=== PATIENT | male | born 1930 | race Hispanic/Latino ===

== ENCOUNTER 2017-10-19 17:20 | Inpatient (IN) | payer MEDICAID ==
[~2017-10-19] VITALS: Ht 167.6 cm; Wt 81.6 kg
[~2017-10-19 17:20] MED LIST: ASPIR 8181 MG ORAL; COLACE50 MG ORAL; CRANBERRY PO; FLOMAX0.4 MG ORAL; GABAPENTIN100 MG ORAL; LISINOPRIL2.5 MG ORAL; MILK OF MA2400 MG/10 ORAL; NIASPAN ER750 MG ORAL; NORVASC10 MG ORAL; TYLENOL650 MG/20. ORAL; ULTRAM50 MG ORAL; VITAMIN B650 M1 PO
[2017-10-19] MEDS ORDERED: AZO CRANBERRY1 EACH PO (17:31)
[2017-10-19] MEDS ORDERED: AVODART0.5 MG ORAL (17:31)
[2017-10-19] MEDS ORDERED: NEURONTIN100 MG ORAL (17:32)
[2017-10-19] MEDS ORDERED: LOPID600 MG ORAL (17:32)
--- NOTE | 2017-10-19 17:44 | Emergency Room Report ---
History of Present Illness General Chief Complaint: Altered Mental Status Source: Patient, EMS Present Illness HPI Patient presents with altered mental status. Paramedics found him hypotensive. He states he has pain all over his body. Accu-Chek was in the 100s. He complains about dysuria. Paramedics gave the patient a fluid bolus of 250 and his blood pressure came up to 91. He had improvement in mentation with this. Patient denies nausea vomiting diarrhea constipation. He also denies cough, chest pain, rashes, depression, headache. H/O BPH and urinary retention in past. Allergies: Coded Allergies: No Known Allergies (Unverified , 07/01/13) Patient History Past Medical History: see triage record Social History: Denies: smoking, alcohol use, drug use Social History Narrative Mckayla Hunter Reviewed Nursing Documentation: PMH: Agreed; PSxH: Agreed Nursing Documentation-PMH Past Medical History: No History, Except For Hx Cardiac Problems: Yes - Hyperlipidemia Hx Hypertension: Yes - PVD Hx Cancer: No Hx Gastrointestinal Problems: Yes - GERD History Of Psychiatric Problem: Yes - major depression Hx Neurological Problems: Yes - Sciatica Hx Dementia: Yes - per family Physical Exam Vital Signs Date Time Temp Pulse Resp B/P (MAP) Pulse Ox O2 Delivery O2 Flow Rate FiO2 10/19/17 17:24 98.2 94 16 91/52 94 Room Air 98.2 Sp02 EP Interpretation: reviewed, normal General Appearance: no apparent distress, thin, Chronically Ill Head: normocephalic, atraumatic Eyes: bilateral eye normal inspection ENT: moist mucus membranes Neck: supple Respiratory: chest non-tender, lungs clear, normal breath sounds Cardiovascular #1: regular rate, rhythm Cardiovascular #2: 2+ radial (R) Gastrointestinal: normal inspection, normal bowel sounds, non tender, no mass, non-distended, scaphoid Genitourinary: penis normal - uncirc, other - Diaper Musculoskeletal: back normal, normal range of motion, no calf tenderness Neurologic: alert, sensory intact, motor weakness - all 4, oriented - 2 Psychiatric: mood/affect normal Skin: normal inspection, warm/dry Procedures Additional Procedure Procedure Narrative #14 Coudet cath placed by ERMD. Medical Decision Making Diagnostic Impression: Primary Impression: Sepsis Qualified Codes: A41.9 - Sepsis, unspecified organism Additional Impression: UTI (lower urinary tract infection) ER Course Patient presents with altered mentation and hypotension. Differential includes acute myocardial infarction, sepsis, UTI, dehydration amongst others. Evaluation will be with a sepsis workup, EKG and chest x-ray also. The patient will receive IV hydration and most likely will need IV antibiotics. EKG with some normal sinus rhythm with nonspecific ST-T wave changes with ST inversions laterally rate of 73. Elevated WBC. CREDIT RISK REVIEW OFFICER normal. Elevated BNP. CXR no infiltrate, but atelectasis L base. Antibiotics started. Aguilera placed - no urine output initially. UA with pyuria. Sepsis re-evaluation: more alert, no hypotension, good capillary fill. Admit med Dr. Colon. Laboratory Tests Test 10/19/17 18:00 10/19/17 20:20 White Blood Count 33.6 K/UL (4.8-10.8) *H Red Blood Count 4.11 M/UL (4.70-6.10) L Hemoglobin 13.5 G/DL (14.2-18.0) L Hematocrit 38.9 % (42.0-52.0) L Mean Corpuscular Volume 95 FL (80-99) Mean Corpuscular Hemoglobin 32.9 PG (27.0-31.0) H Mean Corpuscular Hemoglobin Concent 34.8 G/DL (32.0-36.0) Red Cell Distribution Width 12.0 % (11.6-14.8) Platelet Count 280 K/UL (150-450) Mean Platelet Volume 6.3 FL (6.5-10.1) L Neutrophils (%) (Auto) % (45.0-75.0) Lymphocytes (%) (Auto) % (20.0-45.0) Monocytes (%) (Auto) % (1.0-10.0) Eosinophils (%) (Auto) % (0.0-3.0) Basophils (%) (Auto) % (0.0-2.0) Differential Total Cells Counted 100 Neutrophils % (Manual) 95 % (45-75) H Lymphocytes % (Manual) 3 % (20-45) L Monocytes % (Manual) 2 % (1-10) Eosinophils % (Manual) 0 % (0-3) Basophils % (Manual) 0 % (0-2) Band Neutrophils 0 % (0-8) Platelet Estimate Adequate Platelet Morphology Normal Red Blood Cell Morphology Normal Prothrombin Time 11.7 SEC (9.30-11.50) H Prothrombin Time INR 1.1 (0.9-1.1) PTT 30 SEC (23-33) Sodium Level 139 MMOL/L (136-145) Potassium Level 4.4 MMOL/L (3.5-5.1) Chloride Level 103 MMOL/L (98-107) Carbon Dioxide Level 22 MMOL/L (21-32) Anion Gap 14 mmol/L (5-15) Blood Urea Nitrogen 40 mg/dL (7-18) H Creatinine 2.3 MG/DL (0.55-1.30) H Estimate Glomerular Filtration Rate mL/min (>60) Glucose Level 131 MG/DL (74-106) H Lactic Acid Level 1.80 mmol/L (0.4-2.0) Calcium Level 9.3 MG/DL (8.5-10.1) Total Bilirubin 0.7 MG/DL (0.2-1.0) Aspartate Amino Transferase (AST) 19 U/L (15-37) Alanine Aminotransferase (ALT) 16 U/L (12-78) Alkaline Phosphatase 68 U/L (46-116) Total Creatine Kinase 177 U/L (26-308) Troponin I 0.032 ng/mL (0.000-0.056) Pro-B-Type Natriuretic Peptide 3038 pg/mL (0-125) H Total Protein 8.5 G/DL (6.4-8.2) H Albumin 3.7 G/DL (3.4-5.0) Globulin 4.8 g/dL Albumin/Globulin Ratio 0.8 (1.0-2.7) L Urine Color Pale yellow Urine Appearance Cloudy Urine pH 8 (4.5-8.0) Urine Specific [place] 1.010 (1.005-1.035) Urine Protein 3+ (NEGATIVE) H Urine Glucose (UA) Negative (NEGATIVE) Urine Ketones Negative (NEGATIVE) Urine Blood 5+ (NEGATIVE) H Urine Nitrite Negative (NEGATIVE) Urine Bilirubin Negative (NEGATIVE) Urine Urobilinogen Normal MG/DL (0.0-1.0) Urine Leukocyte Esterase 3+ (NEGATIVE) H Urine RBC 15-20 /HPF (0 - 0) H Urine WBC 60-80 /HPF (0 - 0) H Urine Squamous Epithelial Cells Occasional /LPF Urine Bacteria Many /HPF (NONE) H EKG Diagnostic Results Rate: normal Rhythm: NSR ST Segments: no acute changes Rhythm Strip Diag. Results EP Interpretation: yes Rhythm: NSR, no PVC's, no ectopy Chest X-Ray Diagnostic Results Chest X-Ray Diagnostic Results : Chest X-Ray Ordered: Yes # of Views/Limited/Complete: 1 View Indication: Other EP Interpretation: Yes Interpretation: no consolidation, no effusion, no pneumothorax Impression: No acute disease Electronically Signed by: Electronically signed by Tyler Sanderson MD Last Vital Signs Date Time Temp Pulse Resp B/P (MAP) Pulse Ox O2 Delivery O2 Flow Rate FiO2 10/19/17 20:51 97.0 70 20 109/52 100 Room Air 97.0 Status: improved Disposition: ADMITTED INPATIENT Condition: Serious Tyler Sanderson M.D. Oct 19, 2017 17:44
[2017-10-19 18:00] VITALS: BP 98/46
[2017-10-19 18:26] LABS: INR 1.1 (0.9-1.1)
[2017-10-19 18:34] LABS: ANION GAP 14 mmol/L (5-15); BLOOD UREA NITROGEN 40 mg/dL (7-18); CALCIUM 9.3 MG/DL (8.5-10.1); CARBON DIOXIDE 22 MMOL/L (21-32); CHLORIDE 103 MMOL/L (98-107); CREATININE 2.3 MG/DL (0.55-1.30); POTASSIUM 4.4 MMOL/L (3.5-5.1); SODIUM 139 MMOL/L (136-145)
[2017-10-19 18:36] LABS: HEMATOCRIT 38.9 % (42.0-52.0); HEMOGLOBIN 13.5 G/DL (14.2-18.0); MEAN CORPUSCULAR VOLUME 95 FL (80-99); PLATELET COUNT 280 K/UL (150-450); RED BLOOD COUNT 4.11 M/UL (4.70-6.10)
--- NOTE | 2017-10-19 18:43 | Diagnostic Imaging Report ---
EXAM: XR Chest, 1 View CLINICAL HISTORY: ALOC TECHNIQUE: Frontal view of the chest. COMPARISON: Chest x-ray 07/01/13. FINDINGS: Lungs: No consolidation. Mild nodularity in the lung apices as before. Pleural space: Unremarkable. No pneumothorax. Heart: Mild cardiomegaly. Mediastinum: Unremarkable. Bones/joints: No acute fracture. IMPRESSION: No confluent consolidation.
[2017-10-19 18:45] LABS: ALANINE AMINOTRANSFERASE 16 U/L (12-78); ALBUMIN 3.7 G/DL (3.4-5.0); ALBUMIN/GLOBULIN RATIO 0.8 (1.0-2.7); ALKALINE PHOSPHATASE 68 U/L (46-116); ASPARTATE AMINO TRANSFERASE 19 U/L (15-37); BILIRUBIN,TOTAL 0.7 MG/DL (0.2-1.0); CREATINE KINASE 177 U/L (26-308); WHITE BLOOD COUNT 33.6 K/UL (4.8-10.8)
[2017-10-19] MEDS ORDERED: Cefepime HCl 1 GM in D5W 55 ML IVPB ONE (19:00)
[2017-10-19] MEDS ORDERED: Vancomycin 1 GM in D5W 275 ML IVPB ONE (19:00)
[2017-10-19] MEDS ORDERED: Lidocaine HCl 2% Jelly 5ml Tube TOPIC ONE ×2 (19:30→19:50)
[2017-10-19 20:02] VITALS: BP 89/51
[2017-10-19 20:35] LABS: APPEARANCE,URINE CLOUDY; BILIRUBIN, URINE NEGATIVE (NEGATIVE); COLOR,URINE PALE YELLOW; GLUCOSE, URINE (UA) NEGATIVE (NEGATIVE); KETONES,URINE NEGATIVE (NEGATIVE); LEUKOCYTE ESTERASE ,URINE 3+ (NEGATIVE); NITRITE,URINE NEGATIVE (NEGATIVE); PH,URINE 8 (4.5-8.0); PROTEIN,URINE 3+ (NEGATIVE); UROBILINOGEN,URINE NORMAL MG/DL (0.0-1.0)
[2017-10-19 20:51] VITALS: BP 109/52
[2017-10-19 21:24] VITALS: BP 124/75
[2017-10-20] VITALS: BP 112/63
--- NOTE | 2017-10-20 02:30 | History and Physical Report ---
DATE OF ADMISSION: 10/19/2017 REASON FOR ADMISSION: This is the first admission to [facility] of this 87-year-old patient because of hypotension and sepsis. HISTORY OF PRESENT ILLNESS: The patient is a resident of an extended care facility where he has been in stable condition over the last several years. He is known to have several chronic medical syndrome that we described in the following paragraph, but he has been stable on his current medication. Several days prior to the present admission, he developed dysuria and frequency. During his examination on the day of admission, he developed anorexia, hypotension, tachycardia, and lethargy. He was then transferred to [facility] ER where he was found to have blood pressure of 91/50 with a heart rate of 94 and WBC of 24,000. He received IV fluid, broad-spectrum antibiotics and was admitted. PAST MEDICAL HISTORY: He denied any surgical antecedent. Medically, he is known to have high blood pressure for the last 3 years, diabetes mellitus type 2 for the last 3 years for which he is on diet only. He has hyperlipidemia for 5 years and benign prostatic hypertrophy for the last . ALLERGIES: No known drug allergies. MEDICATIONS: The patient is on lisinopril 20 mg daily. He is on Avodart 0.5 mg daily, tamsulosin 0.4 mg daily, and he has as needed medication for pain. FAMILY HISTORY: Noncontributory. SOCIAL HISTORY: He is single. He was born in [place]. He lived in [place] for many years. 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 HABITS: The patient denies any smoking, drinking, or use of illicit drugs. REVIEW OF SYSTEMS: CARDIOVASCULAR: The patient denied any chest pain, shortness of breath, palpitations, or dizziness. PULMONARY: The patient denied any cough, wheezing, or expectoration. GASTROINTESTINAL: His appetite is moderate. His weight is stable. He has no dysphagia or dyspepsia. No bowel movement disorder. GENITOURINARY: Prior to the last few days, the patient denied any dysuria, frequency, or incontinence. Nocturia is 0 to 1. JOINTS: The patient denies any pain, swelling, stiffness, cold extremities, photosensitivity, dry eyes, or alopecia. CENTRAL NERVOUS SYSTEM: Sleep is of good quality. No numbness, tingling, seizure disorder, and has no headache. PHYSICAL EXAMINATION: VITAL SIGNS: Blood pressure is 109/52, his pulse is 70, respirations were 20, and temperature was 97 degrees. HEENT: Eyes were normal. Pupils are equal, round, equal, and reactive to light. Sclerae was white. Conjunctiva was pink. Extraocular movements were normal. Temporal arteries were palpable bilaterally. There was no bilateral temporal wasting. Visual jacobs to confrontation were normal and neglect sign was negative. ENT, mucous membranes were not dehydrated. Auditory canals were clear and tympanic membranes could not be visualized. Nasal cavity was not congested. Nasal septum was intact. Soft palate was free of ulcerations. Pharynx was clear from exudate or tonsillar hypertrophy. Uvula rakan to phonation. Tongue was moist, midline, and normally papillated. NECK: Supple. There was no goiter. No mass. No lymphadenopathy. There was no JVD. No bruits. Carotid upstroke was 2+. LUNGS: Clear. HEART: PMI was in fifth left intercostal space in midclavicular line. There was normal S1 and normal S2. There was no murmur. No arrhythmia. No S3. No S4. No pericardial rub. ABDOMEN: Soft and nontender without organomegaly. There were no masses palpable. There were normal bowel sounds without bruits. There was no guarding. No rebound tenderness. No ascites. No hernia. No CVA tenderness. Liver span was 8 cm, mostly nontender. Palpation in the suprapubic area generates moderate tenderness. EXTREMITIES: No cyanosis, no clubbing, and no edema. Extremities were warm. NEUROLOGICAL: Reflexes in biceps, triceps, and brachioradialis were present. Patellar retinaculum were present. Plantar were in flexion. Cranial nerves from II through XII were symmetric and equal. Cerebellar function, gait, ebnagz-aj-myis, rapid alternating movements, and Romberg sign were not performed by the patient. There was no tremor. No nystagmus. No extrapyramidal rigidity. Sensory exam to pinprick, cotton touch, and position are grossly normal. Motor strength was 5/5 against resistance in upper and lower extremities in proximal and distal muscles and correspond to age. LABORATORY AND DIAGNOSTIC DATA: His hemoglobin is 13.5, hematocrit 38.9 with MCV of 95, WBC 33.6, and platelets of 280. His BUN and creatinine is 40 and 2.3 respectively. His sodium is 139, potassium 4.4, chloride 103, and CO2 is 22. His albumin is 3.7. His globulin is 4.8. His troponin was 0.032. His lactic acid was 1.8. His urinalysis, 60-80 wbc per high-power field, 15 to 20 rbc's with 5+ positive for blood and 3+ positive for protein, and bacteria were many. His INR was 1.1. His PTT was 30. His chest x-ray show no active disease. IMPRESSION: The patient has sepsis, tachycardia, hypotension, and most probably urosepsis. PLAN: Blood culture and urine culture have been sent already from emergency room. The patient will be started on IV normal saline at 150 mL per hour. Diabetic diet will be given, 2000-calorie ADA diet. Accu-Chek every 6 hours with low intensity regular insulin. His lisinopril, Avodart and tamsulosin will be renewed. CBC, BMP, LFT, TSH, T4, ESR, CRP, lipid panel, and Hb A1c will be requested as well as abdominal pelvic ultrasound. Infectious Disease construction consultant and Pulmonary construction consultant were called to assist in the management of this case. Nephrology construction consultant will be called as well. Repeat laboratory tests will be done in the morning. Hafsa Colon M.D. DR: CHANTAL JOB#: [id number] CC:
[2017-10-20 04:00] VITALS: BP 103/65
[2017-10-20 04:34] LABS: HEMATOCRIT 34.7 % (42.0-52.0); HEMOGLOBIN 12.1 G/DL (14.2-18.0); MEAN CORPUSCULAR VOLUME 93 FL (80-99); PLATELET COUNT 236 K/UL (150-450); RED BLOOD COUNT 3.74 M/UL (4.70-6.10); RED CELL DISTRIBUTION WIDTH 11.9 % (11.6-14.8)
[2017-10-20 04:38] LABS: WHITE BLOOD COUNT 25.3 K/UL (4.8-10.8)
[2017-10-20 04:58] LABS: ALANINE AMINOTRANSFERASE 14 U/L (12-78); ALBUMIN 2.9 G/DL (3.4-5.0); ALKALINE PHOSPHATASE 54 U/L (46-116); ANION GAP 12 mmol/L (5-15); ASPARTATE AMINO TRANSFERASE 28 U/L (15-37); BILIRUBIN,DIRECT 0.1 MG/DL (0.0-0.3); BILIRUBIN,TOTAL 0.6 MG/DL (0.2-1.0); BLOOD UREA NITROGEN 42 mg/dL (7-18); CALCIUM 8.2 MG/DL (8.5-10.1); CARBON DIOXIDE 21 MMOL/L (21-32); CHLORIDE 108 MMOL/L (98-107); CHOLESTEROL 118 MG/DL (< 200); CREATININE 1.8 MG/DL (0.55-1.30); HDL CHOLESTEROL 42 MG/DL (40-60); POTASSIUM 4.1 MMOL/L (3.5-5.1); SODIUM 141 MMOL/L (136-145); TRIGLYCERIDES 80 MG/DL (30-150)
[2017-10-20] MEDS: NovoLOG Insulin Flexpen SUBQ SCH ×4 (06:30→20:42)
[2017-10-20 08:00] VITALS: BP 141/80
[2017-10-20] MEDS: Phenazopyridine 200mg tab ORAL SCH ×3 (09:38→17:48)
[2017-10-20] MEDS: Lisinopril 10mg tab ORAL SCH ×2 (09:39→17:48)
[2017-10-20] MEDS: Heparin 5000 units/ml inj SUBQ SCH ×2 (09:41→20:43)
--- NOTE | 2017-10-20 10:56 | Pulmonology Progress Note ---
Assessment/Plan Problems: (1) Sepsis (2) UTI (lower urinary tract infection) (3) Urinary retention Assessment/Plan iv abx f/u cultures stool softeners on Flomax renal studies Subjective ROS Limited/Unobtainable: No Interval Events: awake, comfortable Allergies: Coded Allergies: No Known Allergies (Unverified , 07/01/13) Objective Last 24 Hour Vital Signs Date Time Temp Pulse Resp B/P (MAP) Pulse Ox O2 Delivery O2 Flow Rate FiO2 10/20/17 09:39 141/80 10/20/17 08:10 Room Air 10/20/17 08:00 98.1 61 18 141/80 (100) 96 98.1 10/20/17 04:00 69 10/20/17 04:00 98.0 63 20 103/65 (78) 96 98.0 10/20/17 00:00 98.3 74 20 112/63 (79) 95 98.3 10/20/17 00:00 66 10/19/17 21:51 Room Air 10/19/17 21:24 98.5 75 23 124/75 (91) 94 98.5 10/19/17 21:00 97.0 65 20 109/52 100 Room Air 97.0 70 10/19/17 20:51 97.0 70 20 109/52 100 Room Air 97.0 10/19/17 20:02 97.0 65 24 89/51 99 Room Air 97.0 10/19/17 18:00 63 24 98/46 99 Room Air 10/19/17 17:24 98.2 94 16 91/52 94 Room Air 98.2 Intake and Output 10/19/17 10/20/17 19:00 07:00 Intake Total 1055 ml Output Total 230 ml Balance 825 ml Intake IV Total 1055 ml Output Urine Total 230 ml General Appearance: WD/WN HEENT: normocephalic Respiratory/Chest: chest wall non-tender, lungs clear Cardiovascular: normal peripheral pulses, regular rhythm Abdomen: normal bowel sounds, soft, non tender 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 Microbiology Date/Time Source Procedure Growth Status 10/19/17 20:20 Urine,Clean Catch Urine Culture - Preliminary Resulted Laboratory Tests 10/19/17 18:00: White Blood Count 33.6*H, Red Blood Count 4.11L, Hemoglobin 13.5L, Hematocrit 38.9L, Mean Corpuscular Volume 95, Mean Corpuscular Hemoglobin 32.9H, Mean Corpuscular Hemoglobin Concent 34.8, Red Cell Distribution Width 12.0, Platelet Count 280, Mean Platelet Volume 6.3L, Neutrophils (%) (Auto) , Lymphocytes (%) ( Auto) , Monocytes (%) (Auto) , Eosinophils (%) (Auto) , Basophils (%) (Auto) , Differential Total Cells Counted 100, Neutrophils % (Manual) 95H, Lymphocytes % (Manual) 3L, Monocytes % (Manual) 2, Eosinophils % (Manual) 0, Basophils % ( Manual) 0, Band Neutrophils 0, Platelet Estimate Adequate, Platelet Morphology Normal, Red Blood Cell Morphology Normal, Prothrombin Time 11.7H, Prothromb Time International Ratio 1.1, Activated Partial Thromboplast Time 30, Sodium Level 139, Potassium Level 4.4, Chloride Level 103, Carbon Dioxide Level 22, Anion Gap 14, Blood Urea Nitrogen 40H, Creatinine 2.3H, Estimat Glomerular Filtration Rate , Glucose Level 131H, Lactic Acid Level 1.80, Calcium Level 9.3 , Total Bilirubin 0.7, Aspartate Amino Transf (AST/SGOT) 19, Alanine Aminotransferase (ALT/SGPT) 16, Alkaline Phosphatase 68, Total Creatine Kinase 177, Troponin I 0.032, Pro-B-Type Natriuretic Peptide 3038H, Total Protein 8.5H , Albumin 3.7, Globulin 4.8, Albumin/Globulin Ratio 0.8L 10/19/17 20:20: Urine Color Pale yellow, Urine Appearance Cloudy, Urine pH 8, Urine Specific [place] 1.010, Urine Protein 3+H, Urine Glucose (UA) Negative, Urine Ketones Negative, Urine Blood 5+H, Urine Nitrite Negative, Urine Bilirubin Negative, Urine Urobilinogen Normal, Urine Leukocyte Esterase 3+H, Urine RBC 15-20H, Urine WBC 60-80H, Urine Squamous Epithelial Cells Occasional, Urine Bacteria ManyH 10/20/17 04:15: White Blood Count 25.3*H, Red Blood Count 3.74L, Hemoglobin 12.1L, Hematocrit 34.7L, Mean Corpuscular Volume 93, Mean Corpuscular Hemoglobin 32.3H, Mean Corpuscular Hemoglobin Concent 34.9, Red Cell Distribution Width 11.9, Platelet Count 236, Mean Platelet Volume 6.8, Neutrophils (%) (Auto) , Lymphocytes (%) ( Auto) , Monocytes (%) (Auto) , Eosinophils (%) (Auto) , Basophils (%) (Auto) , Differential Total Cells Counted 100, Neutrophils % (Manual) 92H, Lymphocytes % (Manual) 1L, Monocytes % (Manual) 3, Eosinophils % (Manual) 0, Basophils % ( Manual) 0, Band Neutrophils 4, Platelet Estimate Adequate, Platelet Morphology Normal, Red Blood Cell Morphology Normal, Sodium Level 141, Potassium Level 4.1 , Chloride Level 108H, Carbon Dioxide Level 21, Anion Gap 12, Blood Urea Nitrogen 42H, Creatinine 1.8H, Estimat Glomerular Filtration Rate , Glucose Level 104, Calcium Level 8.2L, Total Bilirubin 0.6, Aspartate Amino Transf (AST/ SGOT) 28, Alanine Aminotransferase (ALT/SGPT) 14, Alkaline Phosphatase 54, Total Protein 7.4, Albumin 2.9L, Erythrocyte Sedimentation Rate 63H, Hemoglobin A1c 5.8, Direct Bilirubin 0.1, Triglycerides Level 80, Cholesterol Level 118, LDL Cholesterol 61, HDL Cholesterol 42, Cholesterol/HDL Ratio 2.8L Current Medications Medications (Trade) Dose Ordered Sig/Zurdo Route PRN Reason Start Time Stop Time Status Last Admin Dose Admin Acetaminophen (Tylenol) 650 mg Q6H PRN ORAL Mild Pain/Temp > 100.5 10/19/17 22:30 11/18/17 22:29 Cefepime HCl 1 gm/ Dextrose 55 ml @ 110 mls/hr Q24H IVPB 10/20/17 19:00 10/27/17 18:59 Dextrose (Dextrose 50%) 25 ml STAT PRN IV Hypoglycemia 10/19/17 22:30 11/18/17 22:29 Dextrose (Dextrose 50%) 50 ml STAT PRN IV Hypoglycemia 10/19/17 22:30 11/18/17 22:29 Gemfibrozil (Lopid) 600 mg TWICE A DAY ORAL 10/20/17 09:00 11/19/17 08:59 10/20/17 09:38 Heparin Sodium (Porcine) (Heparin 5000 units/ml) 5,000 units EVERY 12 HOURS SUBQ 10/20/17 09:00 11/19/17 08:59 10/20/17 09:41 Insulin Aspart (NovoLOG) BEFORE MEALS AND HS SUBQ 10/20/17 06:30 11/19/17 06:29 Levofloxacin 150 ml @ 100 mls/hr Q48H IVPB 10/21/17 20:00 10/28/17 19:59 Lisinopril (Zestril) 10 mg BID ORAL 10/20/17 09:00 11/19/17 08:59 10/20/17 09:39 Phenazopyridine HCl (Pyridium) 200 mg THREE TIMES A DAY ORAL 10/20/17 09:00 11/19/17 08:59 10/20/17 09:38 Sodium Chloride 1,000 ml @ 100 mls/hr Q10H IV 10/19/17 22:30 11/18/17 22:29 10/20/17 09:37 Tamsulosin HCl (Flomax) 0.4 mg BEDTIME ORAL 10/20/17 21:00 11/19/17 20:59 Vancomycin HCl (Vanco rx to dose) 1 ea DAILY PRN MISC Per rx protocol 10/20/17 09:00 11/19/17 08:59 Vancomycin/Sodium Chloride 250 ml @ 167 mls/hr Q24H IVPB 10/20/17 21:00 10/25/17 20:59 Griffin Patel MD Oct 20, 2017 10:56
--- NOTE | 2017-10-20 11:10 | Diagnostic Imaging Report ---
EXAM: US Abdomen Complete CLINICAL HISTORY: ABSCESS TECHNIQUE: Real-time ultrasound of the abdomen (complete) with image documentation. COMPARISON: No relevant prior studies available. FINDINGS: Liver: Liver measures 14 cm. Gallbladder: Cholelithiasis without inflammatory or obstructive changes. Negative sonographic Almeida's Common bile duct: Unremarkable as visualized. Pancreas: Pancreas is obscured. Kidneys: No hydronephrosis. Spleen: Limited visualization of the spleen. Aorta: Aorta is obscured. Inferior vena cava: Unremarkable as visualized. Tubes, lines and devices: Aguilera catheter decompresses the bladder. Other findings: Some distended bowel loops. IMPRESSION: Cholelithiasis without inflammatory or obstructive changes.
[2017-10-20 11:16] LABS: CREATINE KINASE 419 U/L (26-308)
--- NOTE | 2017-10-20 11:25 | Consultation ---
Consult Note Consult Note Patient presents with altered mental status. Paramedics found him hypotensive. He states he has pain all over his body. Accu-Chek was in the 100s. He complains about dysuria. Paramedics gave the patient a fluid bolus of 250 and his blood pressure came up to 91. He had improvement in mentation with this. Patient denies nausea vomiting diarrhea constipation. He also denies cough, chest pain, rashes, depression, headache. H/O BPH and urinary retention in past. No Known Allergies (Unverified , 07/01/13) Patient History Past Medical History: see triage record Social History: Denies: smoking, alcohol use, drug use Social History Narrative [facility] Reviewed Nursing Documentation: PMH: Agreed; PSxH: Agreed Nursing Documentation-PMH Past Medical History: No History, Except For Hx Cardiac Problems: Yes - Hyperlipidemia Hx Hypertension: Yes - PVD Hx Cancer: No Hx Gastrointestinal Problems: Yes - GERD History Of Psychiatric Problem: Yes - major depression Hx Neurological Problems: Yes - Sciatica Hx Dementia: Yes - per family Assessment/Plan (1) Sepsis Hypotension (2) UTI (lower urinary tract infection) (3) Urinary retention Hydrate- Antibiotics Monitor renal parameters avoid Nephrotoxics Hong Easton MD Oct 20, 2017 11:25
[2017-10-20 11:29] LABS: APPEARANCE,URINE SLIGHTLY CLOUDY; BILIRUBIN, URINE NEGATIVE (NEGATIVE); COLOR,URINE AMBER; GLUCOSE, URINE (UA) NEGATIVE (NEGATIVE); KETONES,URINE NEGATIVE (NEGATIVE); LEUKOCYTE ESTERASE ,URINE 3+ (NEGATIVE); NITRITE,URINE NEGATIVE (NEGATIVE); PH,URINE 8 (4.5-8.0); PROTEIN,URINE 3+ (NEGATIVE); UROBILINOGEN,URINE NORMAL MG/DL (0.0-1.0)
[2017-10-20 12:00] VITALS: BP 110/65
--- NOTE | 2017-10-20 12:04 | Consultation ---
Consult Note Consult Note # [id number] Devin Roth MD Oct 20, 2017 12:04
[2017-10-20] MEDS: Lactulose 20gm/30ml UDC ORAL SCH ×2 (13:00→17:47)
[2017-10-20] MEDS: Docusate 100mg cap ORAL SCH ×2 (13:11→17:48)
[2017-10-20 16:00] VITALS: BP 117/58
[2017-10-20] MEDS ORDERED: Cefepime HCl 1 GM in D5W 55 ML IVPB SCH (19:00)
[2017-10-20 20:00] VITALS: BP 136/58
[2017-10-20] MEDS ORDERED: Vancomycin 750mg/NS 250ml 250 ML IVPB SCH (21:00)
[2017-10-20] MEDS ORDERED: Tamsulosin 0.4mg cap ORAL SCH (21:00)
--- NOTE | 2017-10-20 22:30 | Consultation ---
DATE OF CONSULTATION: 10/20/2017 INFECTIOUS DISEASES CONSULTATION CONSULTING PHYSICIAN: Devin Roth M.D. REFERRING PHYSICIAN: Valeriy Ring D.O. REASON FOR CONSULTATION: Evaluation of the patient for sepsis, leukocytosis, antibiotic management. HISTORY OF PRESENT ILLNESS: The patient is an 87-year-old male with multiple medical problems as listed below who was admitted to this medical center for altered level of consciousness and hypotension. At the time of admission, the patient was found not to be able to pass the urine. A Aguilera catheter was placed that now has been removed. The patient's mental status improved and now he is alert and oriented x4. The patient was found to have leukocytosis. Infectious Diseases consultation has been requested for evaluation of the patient for possible sepsis. REVIEW OF SYSTEMS: HEENT: No recent change in vision or hearing. PULMONARY: The patient cough. CARDIOVASCULAR: No history of palpitation. GASTROINTESTINAL/ABDOMEN: No nausea or vomiting. GENITOURINARY: As mentioned above. However, the patient is having dysuria. NEUROLOGIC: As mentioned above. PAST MEDICAL HISTORY: 1. BPH. 2. Hypertension. 3. Hyperlipidemia. 4. GERD. 5. Depression. 6. Peripheral vascular disease. ALLERGIES: No known drug allergies. MEDICATIONS: Levaquin, vancomycin, and cefepime. SOCIAL HISTORY: The patient resides in a senior care facility. FAMILY HISTORY: Not contributing. PHYSICAL EXAMINATION: VITAL SIGNS: Temperature 98 degrees, blood pressure 141/80, pulse 61, and respiratory rate 18. HEENT: No pale conjunctivae. No icterus. NECK: No lymphadenopathy. CHEST: Clear. HEART: S1 and S2. ABDOMEN: Soft, nontender. GENITOURINARY: Within normal limits grossly. EXTREMITIES: No cyanosis. NEUROLOGIC: Awake and alert. LABORATORY AND DIAGNOSTIC DATA: White blood cells at the time of admission 33.6, today 25, hemoglobin 12, platelets 236. UA shows 40 to 60 white blood cells, 20 to 30 red blood cells. BUN 42 and creatinine 1.8. BNP 3000. Urine culture is pending. Ultrasound of the abdomen, cholelithiasis. Chest x-ray, NAPD. ASSESSMENT: The patient is an 87-year-old male with multiple medical problems as listed above, who has 1. Probable sepsis. 2. Leukocytosis, improving. 3. Probable urinary tract infection/pyelo(in the setting of urinary obstruction). 4. Rule out probable bacteremia. 5. Acute renal failure, improving. 6. Status post . PLAN: 1. We will continue the patient on IV cefepime, hold IV vancomycin and Levaquin. 2. Monitor CBC. 3. Monitor BMP. 4. Monitor cultures (blood, urine). 5. Monitor the patient's clinical course. 6. Monitor laboratories. 7. Based on the patient's clinical course, we will do further recommendation. Thank you, Dr. Valeriy Ring, for allowing me to participate in the care of this patient. I will follow the patient with you during this hospitalization. Devin Roth M.D. DR: Angel Luis JOB#: [id number] CC:
[2017-10-21] VITALS: BP 120/60
--- NOTE | 2017-10-21 02:15 | Progress Note ---
DATE: 10/20/2017 SUBJECTIVE: The patient is awake, alert, afebrile, and hemodynamically stable. to have chest pain. The pain is at rest and increased on slight effort. PHYSICAL EXAMINATION: VITAL SIGNS: Blood pressure 117/58, his pulse is 66, respirations are 20, and temperature 98.7. HEENT: Eyes were normal. ENT, mucous membranes were moist and intact. NECK: Supple with no JVD without lymph nodes. LUNGS: Clear. HEART: There are high beats of LV systolic murmur at second right intercostal space at the midclavicular line radiating to the right side of the neck and thoracic. ABDOMEN: Soft and nontender with normal bowel sounds. EXTREMITIES: Warm without cyanosis, clubbing, or edema. LABORATORY AND DIAGNOSTIC DATA: Hemoglobin is 12.1, hematocrit 34.7, MCV of 93, WBC of 25.3, and platelets are 236,000. His BUN and creatinine is 42 and 1.8, respectively. It was 40 and 2.3 yesterday. His sodium is 141, potassium 4.1, chloride 108, and CO2 is 21. His uric acid is 6.1. His total CK is 419, cholesterol is 118, and triglyceride is 80, LDL is 61. His urine shows 20 to 30 rbc's per high-power field and 40 to 60 wbc's per high-power field. His is 22. His abdominal ultrasound revealed cholelithiasis without inflammatory obstructive changes. IMPRESSION AND PLAN: The patient's leukocytosis declined. He is on vancomycin 750 mg IV piggyback q.24 hours. He is on Levaquin 750 q.24 hours and cefepime 1 g IV piggyback q.12 hours. Repeat laboratory tests will be done in the a.m. Cardiology consult was called to assist in the management of this case. A 2D echo will be requested. Hafsa Colon M.D. DR: STEVEN JOB#: [id number] CC:
[2017-10-21 04:00] VITALS: BP 116/55
[2017-10-21] MEDS: NovoLOG Insulin Flexpen SUBQ SCH ×4 (05:30→21:29)
[2017-10-21 07:54] VITALS: BP 130/60
[2017-10-21] MEDS: Lactulose 20gm/30ml UDC ORAL SCH ×2 (08:38→13:00)
[2017-10-21] MEDS: Lisinopril 10mg tab ORAL SCH ×2 (08:39→18:05)
[2017-10-21] MEDS: Docusate 100mg cap ORAL SCH ×2 (08:39→13:00)
[2017-10-21] MEDS: Phenazopyridine 200mg tab ORAL SCH ×2 (08:39→13:35)
[2017-10-21] MEDS: Heparin 5000 units/ml inj SUBQ SCH ×2 (08:43→21:28)
[2017-10-21] MEDS ORDERED: Sennosides 8.6mg ORAL SCH (09:00)
[2017-10-21 09:29] LABS: HEMATOCRIT 33.8 % (42.0-52.0); HEMOGLOBIN 11.6 G/DL (14.2-18.0); MEAN CORPUSCULAR VOLUME 94 FL (80-99); PLATELET COUNT 205 K/UL (150-450); RED BLOOD COUNT 3.58 M/UL (4.70-6.10); RED CELL DISTRIBUTION WIDTH 12.2 % (11.6-14.8); WHITE BLOOD COUNT 12.2 K/UL (4.8-10.8)
[2017-10-21 09:42] LABS: ALANINE AMINOTRANSFERASE 20 U/L (12-78); ALBUMIN 2.8 G/DL (3.4-5.0); ALBUMIN/GLOBULIN RATIO 0.6 (1.0-2.7); ALKALINE PHOSPHATASE 56 U/L (46-116); ANION GAP 10 mmol/L (5-15); ASPARTATE AMINO TRANSFERASE 40 U/L (15-37); BILIRUBIN,TOTAL 0.6 MG/DL (0.2-1.0); BLOOD UREA NITROGEN 39 mg/dL (7-18); CALCIUM 8.3 MG/DL (8.5-10.1); CARBON DIOXIDE 22 MMOL/L (21-32); CHLORIDE 110 MMOL/L (98-107); CREATININE 1.4 MG/DL (0.55-1.30); PHOSPHORUS 2.2 MG/DL (2.5-4.9); POTASSIUM 3.7 MMOL/L (3.5-5.1); SODIUM 142 MMOL/L (136-145)
[2017-10-21 11:54] VITALS: BP 128/63
--- NOTE | 2017-10-21 12:15 | Nephrology Progress Note ---
Assessment/Plan Problem List: (1) Acute renal failure (ARF) (2) Urinary retention (3) UTI (lower urinary tract infection) (4) ACS (acute coronary syndrome) (5) Sepsis Assessment (1) Sepsis Hypotension (2) UTI (lower urinary tract infection) (3) Urinary retention and Acute renal failure Plan Hydrate- Antibiotics Monitor renal parameters avoid Nephrotoxics Subjective ROS Limited/Unobtainable: No Constitutional: Reports: malaise, weakness Objective Objective Last 24 Hour Vital Signs Date Time Temp Pulse Resp B/P (MAP) Pulse Ox O2 Delivery O2 Flow Rate FiO2 10/21/17 11:54 97.5 63 18 128/63 (84) 96 97.5 10/21/17 08:39 130/60 10/21/17 08:20 Room Air 10/21/17 07:54 97.9 64 18 130/60 (83) 97 97.9 10/21/17 07:48 60 10/21/17 04:00 65 10/21/17 04:00 98.2 60 16 116/55 (75) 97 98.2 10/21/17 00:00 98.5 63 19 120/60 (80) 94 98.5 10/21/17 00:00 63 10/20/17 21:00 Room Air 10/20/17 20:00 66 10/20/17 20:00 98.0 65 17 136/58 (84) 95 98.0 10/20/17 17:48 117/58 10/20/17 16:00 98.7 60 16 117/58 (77) 97 98.7 10/20/17 15:24 66 Intake and Output 10/20/17 10/21/17 19:00 07:00 Intake Total 460 ml 1020 ml Output Total 700 ml 500 ml Balance -240 ml 520 ml Intake Oral 360 ml 120 ml IV Total 100 ml 900 ml Output Urine Total 700 ml 500 ml # Bowel Movements 2 Laboratory Tests 10/21/17 09:05: White Blood Count 12.2#H, Red Blood Count 3.58L, Hemoglobin 11.6L, Hematocrit 33.8L, Mean Corpuscular Volume 94, Mean Corpuscular Hemoglobin 32.3H, Mean Corpuscular Hemoglobin Concent 34.2, Red Cell Distribution Width 12.2, Platelet Count 205, Mean Platelet Volume 7.2, Neutrophils (%) (Auto) , Lymphocytes (%) ( Auto) , Monocytes (%) (Auto) , Eosinophils (%) (Auto) , Basophils (%) (Auto) , Differential Total Cells Counted 100, Neutrophils % (Manual) 88H, Lymphocytes % (Manual) 7L, Monocytes % (Manual) 4, Eosinophils % (Manual) 1, Basophils % ( Manual) 0, Band Neutrophils 0, Platelet Estimate Adequate, Platelet Morphology Normal, Hypochromasia 1+, Erythrocyte Sedimentation Rate 77H, Sodium Level 142, Potassium Level 3.7, Chloride Level 110H, Carbon Dioxide Level 22, Anion Gap 10 , Blood Urea Nitrogen 39H, Creatinine 1.4H, Estimat Glomerular Filtration Rate , Glucose Level 103, Calcium Level 8.3L, Phosphorus Level 2.2L, Magnesium Level 2.1, Total Bilirubin 0.6, Aspartate Amino Transf (AST/SGOT) 40H, Alanine Aminotransferase (ALT/SGPT) 20, Alkaline Phosphatase 56, Troponin I 0.069H, C- Reactive Protein, Quantitative > 70.0H, Total Protein 7.4, Albumin 2.8L, Globulin 4.6, Albumin/Globulin Ratio 0.6L Height (Feet): 5 Height (Inches): 6.00 Weight (Pounds): 180 General Appearance: no apparent distress Cardiovascular: normal rate Respiratory/Chest: decreased breath sounds Abdomen: soft Hong Easton MD Oct 21, 2017 12:15
[2017-10-21] MEDS ORDERED: Potassium Phosphate 20 MM in NS 275 ML IV ONE ×2 (13:00→14:00)
--- NOTE | 2017-10-21 13:01 | Pulmonology Progress Note ---
Assessment/Plan Problems: (1) Sepsis (2) UTI (lower urinary tract infection) (3) Urinary retention Assessment/Plan improving hemodynamically stable wbc decreasing iv abx f/u cultures stool softeners on Flomax renal studies Subjective ROS Limited/Unobtainable: No Constitutional: Reports: no symptoms HEENT: Repors: no symptoms Respiratory: Reports: no symptoms Allergies: Coded Allergies: No Known Allergies (Unverified , 07/01/13) Objective Last 24 Hour Vital Signs Date Time Temp Pulse Resp B/P (MAP) Pulse Ox O2 Delivery O2 Flow Rate FiO2 10/21/17 11:54 97.5 63 18 128/63 (84) 96 97.5 10/21/17 08:39 130/60 10/21/17 08:20 Room Air 10/21/17 07:54 97.9 64 18 130/60 (83) 97 97.9 10/21/17 07:48 60 10/21/17 04:00 65 10/21/17 04:00 98.2 60 16 116/55 (75) 97 98.2 10/21/17 00:00 98.5 63 19 120/60 (80) 94 98.5 10/21/17 00:00 63 10/20/17 21:00 Room Air 10/20/17 20:00 66 10/20/17 20:00 98.0 65 17 136/58 (84) 95 98.0 10/20/17 17:48 117/58 10/20/17 16:00 98.7 60 16 117/58 (77) 97 98.7 10/20/17 15:24 66 Intake and Output 10/20/17 10/21/17 19:00 07:00 Intake Total 460 ml 1020 ml Output Total 700 ml 500 ml Balance -240 ml 520 ml Intake Oral 360 ml 120 ml IV Total 100 ml 900 ml Output Urine Total 700 ml 500 ml # Bowel Movements 2 General Appearance: WD/WN HEENT: normocephalic, atraumatic Respiratory/Chest: chest wall non-tender, lungs clear Cardiovascular: normal peripheral pulses, normal rate Abdomen: normal bowel sounds, soft, non tender Extremities: no cyanosis Skin: no rash, no ulcers Neurologic/Psychiatric: [employer]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 Complete 10/20/17 10:55 Urine,Clean Catch Urine Culture - Preliminary Gram Negative Bacillus 1 Resulted 10/19/17 20:20 Urine,Clean Catch Urine Culture - Preliminary Gram Negative Bacillus 1 Resulted 10/19/17 17:06 Rectum VRE Culture - Final NO VANCOMYCIN RESISTANT ENTEROCOCCUS ... Complete Laboratory Tests 10/21/17 09:05: White Blood Count 12.2#H, Red Blood Count 3.58L, Hemoglobin 11.6L, Hematocrit 33.8L, Mean Corpuscular Volume 94, Mean Corpuscular Hemoglobin 32.3H, Mean Corpuscular Hemoglobin Concent 34.2, Red Cell Distribution Width 12.2, Platelet Count 205, Mean Platelet Volume 7.2, Neutrophils (%) (Auto) , Lymphocytes (%) ( Auto) , Monocytes (%) (Auto) , Eosinophils (%) (Auto) , Basophils (%) (Auto) , Differential Total Cells Counted 100, Neutrophils % (Manual) 88H, Lymphocytes % (Manual) 7L, Monocytes % (Manual) 4, Eosinophils % (Manual) 1, Basophils % ( Manual) 0, Band Neutrophils 0, Platelet Estimate Adequate, Platelet Morphology Normal, Hypochromasia 1+, Erythrocyte Sedimentation Rate 77H, Sodium Level 142, Potassium Level 3.7, Chloride Level 110H, Carbon Dioxide Level 22, Anion Gap 10 , Blood Urea Nitrogen 39H, Creatinine 1.4H, Estimat Glomerular Filtration Rate , Glucose Level 103, Calcium Level 8.3L, Phosphorus Level 2.2L, Magnesium Level 2.1, Total Bilirubin 0.6, Aspartate Amino Transf (AST/SGOT) 40H, Alanine Aminotransferase (ALT/SGPT) 20, Alkaline Phosphatase 56, Troponin I 0.069H, C- Reactive Protein, Quantitative > 70.0H, Total Protein 7.4, Albumin 2.8L, Globulin 4.6, Albumin/Globulin Ratio 0.6L Current Medications Medications (Trade) Dose Ordered Sig/Zurdo Route PRN Reason Start Time Stop Time Status Last Admin Dose Admin Acetaminophen (Tylenol) 650 mg Q6H PRN ORAL Mild Pain/Temp > 100.5 10/19/17 22:30 9/23/18 22:29 Cefepime HCl 1 gm/ Dextrose 55 ml @ 110 mls/hr Q24H IVPB 10/20/17 19:00 10/27/17 18:59 10/20/17 18:16 Dextrose (Dextrose 50%) 25 ml STAT PRN IV Hypoglycemia 10/19/17 22:30 11/18/17 22:29 Dextrose (Dextrose 50%) 50 ml STAT PRN IV Hypoglycemia 10/19/17 22:30 11/18/17 22:29 Docusate Sodium (Colace) 100 mg THREE TIMES A DAY ORAL 10/20/17 13:00 11/19/17 12:59 10/21/17 08:39 Gemfibrozil (Lopid) 600 mg TWICE A DAY ORAL 10/20/17 09:00 11/19/17 08:59 10/21/17 08:39 Heparin Sodium (Porcine) (Heparin 5000 units/ml) 5,000 units EVERY 12 HOURS SUBQ 10/20/17 09:00 11/19/17 08:59 10/21/17 08:43 Insulin Aspart (NovoLOG) BEFORE MEALS AND HS SUBQ 10/20/17 06:30 11/19/17 06:29 10/20/17 20:42 Lactulose (Cephulac) 20 gm THREE TIMES A DAY ORAL 10/20/17 13:00 11/19/17 12:59 10/20/17 17:47 Lisinopril (Zestril) 10 mg BID ORAL 10/20/17 09:00 11/19/17 08:59 10/21/17 08:39 Mineral Oil (Fleet's Mineral Oil Enema) 133 ml EVERY OTHER DAY RECTAL 10/22/17 09:00 11/21/17 08:59 Phenazopyridine HCl (Pyridium) 200 mg THREE TIMES A DAY ORAL 10/20/17 09:00 11/19/17 08:59 10/21/17 08:39 Potassium Phosphate 20 mm/ Sodium Chloride 281.6667 ml @ 46.944 m... ONCE ONCE IV 10/21/17 13:00 10/21/17 18:59 Sennosides (Senokot) 1 tab DAILY ORAL 10/21/17 09:00 11/20/17 08:59 Sodium Chloride 1,000 ml @ 100 mls/hr Q10H IV 10/19/17 22:30 11/18/17 22:29 10/21/17 03:41 Tamsulosin HCl (Flomax) 0.4 mg BEDTIME ORAL 10/20/17 21:00 11/19/17 20:59 10/20/17 20:36 Griffin Patel MD Oct 21, 2017 13:01
--- NOTE | 2017-10-21 13:23 | Cardiology Report ---
APPROVED REPORT EXAM: Two-dimensional and M-mode echocardiogram with Doppler and color Doppler. INDICATION Chest Pain M-Mode DIMENSIONS IVSd1.6 (0.7-1.1cm)Left Atrium (MM)4.1 (1.6-4.0cm) LVDd4.9 (3.5-5.6cm)Aortic Root2.5 (2.0-3.7cm) PWd1.9 (0.7-1.1cm)Aortic Cusp Exc.1.2 (1.5-2.0cm) IVSs2.3 cm LVDs2.2 (2.5-4.0cm) PWs2.7 cm Technically difficult study due to poor acoustical windows. Normal left ventricular chamber size, systolic function and wall motion to extent visualized. Left ventricular ejection fraction estimated to be 65 %. Mild left ventricular hypertrophy by 2-D. No evidence of pericardial effusion. All other cardiac chamber sizes are within normal limits. Focal aortic valve sclerosis with reduced cusp excursion. Thickened mitral valve leaflets with normal excursion. Mitral annulus and aortic root calcification. Pulmonic valve not well visualized. Normal tricuspid valve structure. IVC dilated at 2.3 cm without physiologic collapse suggestive of increased RA pressure. A color flow and spectral Doppler study was performed and revealed: Moderate aortic regurgitation. Peak aortic valve gradient of 30 mm Hg and a mean of 16 mmHg. Aortic valve area 1.6 m2 calculated by continuity equation. Mild mitral regurgitation. Mitral diastolic velocities suggest reduced left ventricular relaxation c/w mild LV diastolic dysfunction (Grade I ). Moderate tricuspid regurgitation. Tricuspid systolic velocities suggests peak right ventricular systolic pressure of 21 mmHg Mild Pulmonic regurgitation present.
--- NOTE | 2017-10-21 13:55 | Cardiology Report ---
APPROVED REPORT EKG Measurement Heart [id number] Normal sinus rhythm Prolonged QT Abnormal ECG
[2017-10-21 16:00] VITALS: BP 139/61
--- NOTE | 2017-10-21 17:38 | Consultation ---
Consult Note Consult Note Hematology Consult Note REASON FOR CONSULTATION: Evaluation of leukocytosis and anemia. LASHAE CHIANG: Darlene DOS: 10/21/17 HISTORY OF PRESENT ILLNESS: The patient is a resident of an extended care facility where he has been in stable condition over the last several years. He is known to have several chronic medical syndrome that we described in the following paragraph, but he has been stable on his current medication. Several days prior to the present admission, he developed dysuria and frequency. During his examination on the day of admission, he developed anorexia, hypotension, tachycardia, and lethargy. He was then transferred to [facility] ER where he was found to have blood pressure of 91/50 with a heart rate of 94 and WBC of 24,000. He received IV fluids, broad-spectrum antibiotics and was admitted. I have been consulted for the evaluation and management of leukocytosis. Pt with a current WBC count of 12.2 which has improved since admission. Anemia is mild at 11.2 and no w/u is required at this time. PAST MEDICAL HISTORY: HTN, DM, hyperlipidemia, benign prostatic hypertrophy. ALLERGIES: No known drug allergies. MEDICATIONS: lisinopril 20 mg daily, Avodart 0.5 mg daily, tamsulosin 0.4 mg daily FAMILY HISTORY: Noncontributory. SOCIAL HISTORY: He is single. He was born in [place]. He lived in [place] for many years. 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 HABITS: The patient denies any smoking, drinking, or use of illicit drugs. REVIEW OF SYSTEMS: CARDIOVASCULAR: The patient denied any chest pain, shortness of breath, palpitations, or dizziness. PULMONARY: The patient denied any cough, wheezing, or expectoration. GASTROINTESTINAL: His appetite is moderate. His weight is stable. He has no dysphagia or dyspepsia. No bowel movement disorder. GENITOURINARY: Prior to the last few days, the patient denied any dysuria, frequency, or incontinence. Nocturia is 0 to 1. JOINTS: The patient denies any pain, swelling, stiffness, cold extremities, photosensitivity, dry eyes, or alopecia. CENTRAL NERVOUS SYSTEM: Sleep is of good quality. No numbness, tingling, seizure disorder, and has no headache. PHYSICAL EXAMINATION: VITAL SIGNS: Blood pressure is 109/52, his pulse is 70, respirations were 20, and temperature was 97 degrees. HEENT: Eyes were normal. Pupils are equal, round, equal, and reactive to light. Sclerae was white. Conjunctiva was pink. Extraocular movements were normal. Temporal arteries were palpable bilaterally. There was no bilateral temporal wasting. Visual jacobs to confrontation were normal and neglect sign was negative. ENT, mucous membranes were not dehydrated. Auditory canals were clear and tympanic membranes could not be visualized. Nasal cavity was not congested. Nasal septum was intact. Soft palate was free of ulcerations. Pharynx was clear from exudate or tonsillar hypertrophy. Uvula rakan to phonation. Tongue was moist, midline, and normally papillated. NECK: Supple. There was no goiter. No mass. No lymphadenopathy. There was no JVD. No bruits. Carotid upstroke was 2+. LUNGS: Clear. HEART: PMI was in fifth left intercostal space in midclavicular line. There was normal S1 and normal S2. There was no murmur. No arrhythmia. No S3. No S4. No pericardial rub. ABDOMEN: Soft and nontender without organomegaly. There were no masses palpable. There were normal bowel sounds without bruits. There was no guarding. No rebound tenderness. No ascites. No hernia. No CVA tenderness. Liver span was 8 cm, mostly nontender. Palpation in the suprapubic area generates moderate tenderness. EXTREMITIES: No cyanosis, no clubbing, and no edema. Extremities were warm. NEUROLOGICAL: Reflexes in biceps, triceps, and brachioradialis were present. Patellar retinaculum were present. Plantar were in flexion. Cranial nerves from II through XII were symmetric and equal. Cerebellar function, gait, [id number], rapid alternating movements, and Romberg sign were not performed by the patient. There was no tremor. No nystagmus. No extrapyramidal rigidity. Sensory exam to pinprick, cotton touch, and position are grossly normal. Motor strength was 5/5 against resistance in upper and lower extremities in proximal and distal muscles and correspond to age. LABORATORY AND DIAGNOSTIC DATA: His hemoglobin is 13.5, hematocrit 38.9 with MCV of 95, WBC 33.6, and platelets of 280. His BUN and creatinine is 40 and 2.3 respectively. His sodium is 139, potassium 4.4, chloride 103, and CO2 is 22. His albumin is 3.7. His globulin is 4.8. His troponin was 0.032. His lactic acid was 1.8. His urinalysis, 60-80 wbc per high-power field, 15 to 20 rbc's with 5+ positive for blood and 3+ positive for protein, and bacteria were many. His INR was 1.1. His PTT was 30. His chest x-ray show no active disease. Assessment/Plan # Leukocytosis. Has improved since admission. Peripheral smear reviewed and no evidence of blasts/abnormalities --> Pt on IV abx. Continue prn --> Continue to monitor WBC for improvement. --> Currently afebrile. --> appreciate ID recs # Anemia of chronic disease. Currently stable with an Hgb above 11, no w/u required at this time. --> Will monitor for stability. # Sepsis. Pt on IV abx. --> ID consult. # Tachycardia. Controlled. # Hypotension. Improved. Christiano Husain MD Oct 21, 2017 17:38
[2017-10-21] MEDS ORDERED: Docusate 100mg cap ORAL SCH (18:00)
[2017-10-21] MEDS ORDERED: Lactulose 20gm/30ml UDC ORAL SCH (18:00)
[2017-10-21] MEDS ORDERED: Phenazopyridine 200mg tab ORAL SCH (18:00)
[2017-10-21] MEDS ORDERED: Cefepime HCl 1 GM in D5W 55 ML IVPB SCH (19:00)
[2017-10-21 20:00] VITALS: BP 139/71
[2017-10-21] MEDS: Tamsulosin 0.4mg cap ORAL SCH (21:27)
[2017-10-22] VITALS: BP 137/72
[2017-10-22 04:00] VITALS: BP 144/77
[2017-10-22] MEDS: NovoLOG Insulin Flexpen SUBQ SCH ×4 (06:30→20:44)
[2017-10-22 08:00] VITALS: BP 168/80
--- NOTE | 2017-10-22 08:37 | Nephrology Progress Note ---
Assessment/Plan Problem List: (1) Acute renal failure (ARF) (2) Urinary retention (3) UTI (lower urinary tract infection) (4) ACS (acute coronary syndrome) (5) Sepsis Assessment (1) Sepsis Hypotension (2) UTI (lower urinary tract infection) (3) Urinary retention and Acute renal failure Plan Hydrate- Antibiotics Monitor renal parameters avoid Nephrotoxics adjust medications waiting for today's labs Subjective ROS Limited/Unobtainable: No Constitutional: Reports: malaise Objective Objective Last 24 Hour Vital Signs Date Time Temp Pulse Resp B/P (MAP) Pulse Ox O2 Delivery O2 Flow Rate FiO2 10/22/17 04:00 98.1 70 18 144/77 (99) 95 98.1 10/22/17 00:00 98.5 65 18 137/72 (93) 95 98.5 10/21/17 21:04 Room Air 10/21/17 20:00 99.5 63 18 139/71 (93) 95 99.5 10/21/17 18:05 139/61 10/21/17 16:00 98.1 56 18 139/61 (87) 97 98.1 10/21/17 12:00 70 10/21/17 11:54 97.5 63 18 128/63 (84) 96 97.5 10/21/17 08:39 130/60 Intake and Output 10/21/17 10/22/17 19:00 07:00 Intake Total 240 ml 1415 ml Output Total 400 ml Balance 240 ml 1015 ml Intake Oral 240 ml 360 ml IV Total 1055 ml Output Urine Total 400 ml # Voids 1 # Bowel Movements 3 1 Laboratory Tests 10/21/17 09:05: White Blood Count 12.2#H, Red Blood Count 3.58L, Hemoglobin 11.6L, Hematocrit 33.8L, Mean Corpuscular Volume 94, Mean Corpuscular Hemoglobin 32.3H, Mean Corpuscular Hemoglobin Concent 34.2, Red Cell Distribution Width 12.2, Platelet Count 205, Mean Platelet Volume 7.2, Neutrophils (%) (Auto) , Lymphocytes (%) ( Auto) , Monocytes (%) (Auto) , Eosinophils (%) (Auto) , Basophils (%) (Auto) , Differential Total Cells Counted 100, Neutrophils % (Manual) 88H, Lymphocytes % (Manual) 7L, Monocytes % (Manual) 4, Eosinophils % (Manual) 1, Basophils % ( Manual) 0, Band Neutrophils 0, Platelet Estimate Adequate, Platelet Morphology Normal, Hypochromasia 1+, Erythrocyte Sedimentation Rate 77H, Sodium Level 142, Potassium Level 3.7, Chloride Level 110H, Carbon Dioxide Level 22, Anion Gap 10 , Blood Urea Nitrogen 39H, Creatinine 1.4H, Estimat Glomerular Filtration Rate , Glucose Level 103, Calcium Level 8.3L, Phosphorus Level 2.2L, Magnesium Level 2.1, Total Bilirubin 0.6, Aspartate Amino Transf (AST/SGOT) 40H, Alanine Aminotransferase (ALT/SGPT) 20, Alkaline Phosphatase 56, Troponin I 0.069H, C- Reactive Protein, Quantitative > 70.0H, Total Protein 7.4, Albumin 2.8L, Globulin 4.6, Albumin/Globulin Ratio 0.6L Height (Feet): 5 Height (Inches): 6.00 Weight (Pounds): 180 General Appearance: no apparent distress Objective no change Hong Easton MD Oct 22, 2017 08:37
[2017-10-22 08:49] LABS: BASOPHILS % (AUTO) 0.8 % (0.0-2.0); EOSINOPHILS % (AUTO) 6.9 % (0.0-3.0); HEMATOCRIT 32.3 % (42.0-52.0); HEMOGLOBIN 11.2 G/DL (14.2-18.0); LYMPHOCYTES % (AUTO) 16.4 % (20.0-45.0); MEAN CORPUSCULAR VOLUME 94 FL (80-99); MONOCYTES % (AUTO) 10.5 % (1.0-10.0); NEUTROPHILS % (AUTO) 65.4 % (45.0-75.0); PLATELET COUNT 218 K/UL (150-450); RED BLOOD COUNT 3.44 M/UL (4.70-6.10); WHITE BLOOD COUNT 7.2 K/UL (4.8-10.8)
[2017-10-22] MEDS ORDERED: Sennosides 8.6mg ORAL SCH (09:00)
[2017-10-22] MEDS ORDERED: Fleet's Mineral Oil Enema RECTAL SCH ×2 (09:00)
[2017-10-22 09:22] LABS: ANION GAP 13 mmol/L (5-15); BLOOD UREA NITROGEN 29 mg/dL (7-18); CALCIUM 8.7 MG/DL (8.5-10.1); CARBON DIOXIDE 19 MMOL/L (21-32); CHLORIDE 111 MMOL/L (98-107); CREATININE 1.1 MG/DL (0.55-1.30); POTASSIUM 3.4 MMOL/L (3.5-5.1); SODIUM 142 MMOL/L (136-145)
[2017-10-22] MEDS: Lisinopril 10mg tab ORAL SCH ×2 (10:03→17:12)
[2017-10-22] MEDS: Heparin 5000 units/ml inj SUBQ SCH ×2 (10:07→20:44)
--- NOTE | 2017-10-22 10:45 | Progress Note ---
DATE: 10/21/2017 SUBJECTIVE: The patient is awake, alert, afebrile, and hemodynamically stable. He did not have any complaint except minimal chest pain. Pain description 00:31 pressure type and not related to activity. PHYSICAL EXAMINATION: VITAL SIGNS: Blood pressure 129/61, his pulse is 70, respirations 18, and temperature 98.1 degrees. HEENT: Eyes were normal. ENT, mucous membranes were moist and intact. NECK: Supple with no JVD without lymph nodes. LUNGS: Clear. HEART: Normal sounds with regular beats. There is high pitch aortic systolic murmur at second right intercostal space in the anterior clavicular line. ABDOMEN: Soft and nontender with normal bowel sounds. EXTREMITIES: Warm without cyanosis, clubbing, or edema. LABORATORY DATA: Hemoglobin is 11.6, hematocrit 33.8, MCV of 84, WBC of 12.2, and platelets of 205. His BUN and creatinine is 39 and 1.4 respectively. His sodium is 142, potassium 3.7, chloride 110, CO2 is 22. His BNP is 70. His troponin is 0.169. His albumin is 2.8. His total protein is 7.4. IMPRESSION AND PLAN: The patient had been seen already by an Infectious Disease specialist. He is currently on 03:11 mg IV piggyback q.12 h. and levofloxacin 750 mg IV piggyback q.48 h. Repeat laboratory tests will be done in the morning. Hafsa Colon M.D. DR: CHANTAL JOB#: [id number] CC:
--- NOTE | 2017-10-22 10:58 | Infectious Diseases Prog Note ---
Assessment/Plan Assessment/Plan A: The patient is an 87-year-old male with Probable sepsis. Leukocytosis, improving Complicated UTI UCx : P Mirabilis (in the setting of urinary obstruction) Rule out probable bacteremia Acute renal failure, improving Sp HypoTN US Abd : cholelithiasis Chest x-ray, NAPD BPH Hypertension Hyperlipidemia GERD Depression Peripheral vascular disease PLAN: change t IV cefepime d# 3 to Amoxicillin PO d# / , ok to DC w cont of AB Rx SP IV vancomycin and Levaquin d# 1 Monitor CBC Monitor BMP. Monitor cultures (blood) Subjective Allergies: Coded Allergies: No Known Allergies (Unverified , 07/01/13) Subjective Afebrile and comfortable Objective Vital Signs Last 24 Hour Vital Signs Date Time Temp Pulse Resp B/P (MAP) Pulse Ox O2 Delivery O2 Flow Rate FiO2 10/22/17 10:03 168/80 10/22/17 08:00 97.6 61 19 168/80 (109) 95 97.6 10/22/17 04:00 98.1 70 18 144/77 (99) 95 98.1 10/22/17 00:00 98.5 65 18 137/72 (93) 95 98.5 10/21/17 21:04 Room Air 10/21/17 20:00 99.5 63 18 139/71 (93) 95 99.5 10/21/17 18:05 139/61 10/21/17 16:00 98.1 56 18 139/61 (87) 97 98.1 10/21/17 12:00 70 10/21/17 11:54 97.5 63 18 128/63 (84) 96 97.5 Height (Feet): 5 Height (Inches): 6.00 Weight (Pounds): 180 General Appearance: no acute distress Respiratory/Chest: normal breath sounds Cardiovascular: regularly irregular Abdomen: no organomegaly Microbiology Date/Time Source Procedure Growth Status 10/19/17 18:15 Blood Blood Culture - Preliminary NO GROWTH AFTER 48 HOURS Resulted 10/19/17 18:00 Blood Blood Culture - Preliminary NO GROWTH AFTER 48 HOURS Resulted 10/19/17 17:06 Nasal Nares MRSA Culture - Final NO METHICILLIN RESISTANT STAPH AUREUS... Complete 10/20/17 10:55 Urine,Clean Catch Urine Culture - Final Proteus Mirabilis Complete 10/19/17 20:20 Urine,Clean Catch Urine Culture - Final Proteus Mirabilis Complete 10/19/17 17:06 Rectum - Final NO CARBAPENEM-RESISTANT ENTEROBACTERI... Complete 10/19/17 17:06 Rectum VRE Culture - Final NO VANCOMYCIN RESISTANT ENTEROCOCCUS ... Complete Laboratory Tests Test 10/22/17 08:15 White Blood Count 7.2 K/UL (4.8-10.8) Red Blood Count 3.44 M/UL (4.70-6.10) L Hemoglobin 11.2 G/DL (14.2-18.0) L Hematocrit 32.3 % (42.0-52.0) L Mean Corpuscular Volume 94 FL (80-99) Mean Corpuscular Hemoglobin 32.6 PG (27.0-31.0) H Mean Corpuscular Hemoglobin Concent 34.7 G/DL (32.0-36.0) Red Cell Distribution Width 12.0 % (11.6-14.8) Platelet Count 218 K/UL (150-450) Mean Platelet Volume 7.4 FL (6.5-10.1) Neutrophils (%) (Auto) 65.4 % (45.0-75.0) Lymphocytes (%) (Auto) 16.4 % (20.0-45.0) L Monocytes (%) (Auto) 10.5 % (1.0-10.0) H Eosinophils (%) (Auto) 6.9 % (0.0-3.0) H Basophils (%) (Auto) 0.8 % (0.0-2.0) Sodium Level 142 MMOL/L (136-145) Potassium Level 3.4 MMOL/L (3.5-5.1) L Chloride Level 111 MMOL/L (98-107) H Carbon Dioxide Level 19 MMOL/L (21-32) L Anion Gap 13 mmol/L (5-15) Blood Urea Nitrogen 29 mg/dL (7-18) H Creatinine 1.1 MG/DL (0.55-1.30) Estimat Glomerular Filtration Rate mL/min (>60) Glucose Level 92 MG/DL (74-106) Calcium Level 8.7 MG/DL (8.5-10.1) Troponin I 0.073 ng/mL (0.000-0.056) Current Medications Medications (Trade) Dose Ordered Sig/Zurdo Route PRN Reason Start Time Stop Time Status Last Admin Dose Admin Acetaminophen (Tylenol) 650 mg Q6H PRN ORAL Mild Pain/Temp > 100.5 10/21/17 15:52 11/18/17 15:51 Cefepime HCl 1 gm/ Dextrose 55 ml @ 110 mls/hr Q24H IVPB 10/21/17 19:00 10/27/17 18:59 10/21/17 19:43 Dextrose (Dextrose 50%) 25 ml STAT PRN IV Hypoglycemia 10/21/17 22:30 11/18/17 22:29 Dextrose (Dextrose 50%) 50 ml STAT PRN IV Hypoglycemia 10/21/17 22:30 11/18/17 22:29 Heparin Sodium (Porcine) (Heparin 5000 units/ml) 5,000 units EVERY 12 HOURS SUBQ 10/21/17 21:00 11/19/17 08:59 10/22/17 10:07 Insulin Aspart (NovoLOG) BEFORE MEALS AND HS SUBQ 10/21/17 16:30 11/19/17 06:29 10/21/17 21:29 Lisinopril (Zestril) 10 mg BID ORAL 10/21/17 18:00 11/19/17 08:59 10/22/17 10:03 Mineral Oil (Fleet's Mineral Oil Enema) 133 ml EVERY OTHER DAY RECTAL 10/22/17 09:00 11/21/17 08:59 10/22/17 10:04 Sodium Chloride 1,000 ml @ 50 mls/hr Q20H IV 10/22/17 09:00 11/18/17 08:59 10/22/17 10:04 Tamsulosin HCl (Flomax) 0.4 mg BEDTIME ORAL 10/21/17 21:00 11/19/17 20:59 10/21/17 21:27 Devin Roth MD Oct 22, 2017 10:58
[2017-10-22 12:00] VITALS: BP 156/89
--- NOTE | 2017-10-22 12:27 | Pulmonology Progress Note ---
Assessment/Plan Problems: (1) Sepsis (2) UTI (lower urinary tract infection) (3) Urinary retention Assessment/Plan improving hemodynamically stable wbc decreasing iv abx f/u cultures, Urine has proteus , pansensitive stool softeners on Flomax check electrolytes Subjective ROS Limited/Unobtainable: No Constitutional: Reports: no symptoms HEENT: Repors: no symptoms Respiratory: Reports: no symptoms Allergies: Coded Allergies: No Known Allergies (Unverified , 07/01/13) Objective Last 24 Hour Vital Signs Date Time Temp Pulse Resp B/P (MAP) Pulse Ox O2 Delivery O2 Flow Rate FiO2 10/22/17 10:03 168/80 10/22/17 09:00 Room Air 10/22/17 08:00 97.6 61 19 168/80 (109) 95 97.6 10/22/17 04:00 98.1 70 18 144/77 (99) 95 98.1 10/22/17 00:00 98.5 65 18 137/72 (93) 95 98.5 10/21/17 21:04 Room Air 10/21/17 20:00 99.5 63 18 139/71 (93) 95 99.5 10/21/17 18:05 139/61 10/21/17 16:00 98.1 56 18 139/61 (87) 97 98.1 Intake and Output 10/21/17 10/22/17 19:00 07:00 Intake Total 240 ml 1415 ml Output Total 400 ml Balance 240 ml 1015 ml Intake Oral 240 ml 360 ml IV Total 1055 ml Output Urine Total 400 ml # Voids 1 # Bowel Movements 3 1 General Appearance: WD/WN HEENT: normocephalic, atraumatic Respiratory/Chest: chest wall non-tender, lungs clear Cardiovascular: normal peripheral pulses, normal rate Abdomen: normal bowel sounds, soft, non tender Genitourinary: normal external genitalia Extremities: no cyanosis Skin: no rash 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 Complete 10/20/17 10:55 Urine,Clean Catch Urine Culture - Final Proteus Mirabilis Complete 10/19/17 20:20 Urine,Clean Catch Urine Culture - Final Proteus Mirabilis Complete 10/19/17 17:06 Rectum - Final NO CARBAPENEM-RESISTANT ENTEROBACTERI... Complete 10/19/17 17:06 Rectum VRE Culture - Final NO VANCOMYCIN RESISTANT ENTEROCOCCUS ... Complete Laboratory Tests 10/22/17 08:15: White Blood Count 7.2, Red Blood Count 3.44L, Hemoglobin 11.2L, Hematocrit 32.3L , Mean Corpuscular Volume 94, Mean Corpuscular Hemoglobin 32.6H, Mean Corpuscular Hemoglobin Concent 34.7, Red Cell Distribution Width 12.0, Platelet Count 218, Mean Platelet Volume 7.4, Neutrophils (%) (Auto) 65.4, Lymphocytes (% ) (Auto) 16.4L, Monocytes (%) (Auto) 10.5H, Eosinophils (%) (Auto) 6.9H, Basophils (%) (Auto) 0.8, Sodium Level 142, Potassium Level 3.4L, Chloride Level 111H, Carbon Dioxide Level 19L, Anion Gap 13, Blood Urea Nitrogen 29H, Creatinine 1.1, Estimat Glomerular Filtration Rate , Glucose Level 92, Calcium Level 8.7, Troponin I 0.073H Current Medications Medications (Trade) Dose Ordered Sig/Zurdo Route PRN Reason Start Time Stop Time Status Last Admin Dose Admin Acetaminophen (Tylenol) 650 mg Q6H PRN ORAL Mild Pain/Temp > 100.5 10/21/17 15:52 11/18/17 15:51 Amoxicillin (Amoxil) 500 mg EVERY 8 HOURS ORAL 10/22/17 14:00 10/29/17 13:59 Dextrose (Dextrose 50%) 25 ml STAT PRN IV Hypoglycemia 10/21/17 22:30 11/18/17 22:29 Dextrose (Dextrose 50%) 50 ml STAT PRN IV Hypoglycemia 10/21/17 22:30 11/18/17 22:29 Heparin Sodium (Porcine) (Heparin 5000 units/ml) 5,000 units EVERY 12 HOURS SUBQ 10/21/17 21:00 11/19/17 08:59 10/22/17 10:07 Insulin Aspart (NovoLOG) BEFORE MEALS AND HS SUBQ 10/21/17 16:30 11/19/17 06:29 10/21/17 21:29 Lisinopril (Zestril) 10 mg BID ORAL 10/21/17 18:00 11/19/17 08:59 10/22/17 10:03 Mineral Oil (Fleet's Mineral Oil Enema) 133 ml EVERY OTHER DAY RECTAL 10/22/17 09:00 11/21/17 08:59 10/22/17 10:04 Sodium Chloride 1,000 ml @ 50 mls/hr Q20H IV 10/22/17 09:00 11/18/17 08:59 10/22/17 10:04 Tamsulosin HCl (Flomax) 0.4 mg BEDTIME ORAL 10/21/17 21:00 11/19/17 20:59 10/21/17 21:27 Griffin Patel MD Oct 22, 2017 12:27
--- NOTE | 2017-10-22 14:10 | General Progress Note ---
Assessment/Plan Status: stable Assessment/Plan # Leukocytosis. Has improved since admission. Peripheral smear reviewed and no evidence of blasts/abnormalities --> Pt on IV abx. Continue prn --> Continue to monitor WBC for improvement. --> Currently afebrile. --> appreciate ID recs --> Current WBC of 7.2, wnl # Anemia of chronic disease. Currently stable with an Hgb above 11, no w/u required at this time. --> Will monitor for stability. --> Current hgb pg 11.2 # Sepsis. Pt on IV abx. --> ID consult. # Tachycardia. Controlled. # Hypotension. Improved. Subjective Date patient seen: Oct 22, 2017 ROS Limited/Unobtainable: Yes Hematologic/Lymphatic: Reports: anemia Allergies: Coded Allergies: No Known Allergies (Unverified , 07/01/13) All Systems: reviewed and negative except above Subjective No acute events. WBC improved and wnl. H/H stable. Afebrile. Objective Last 24 Hour Vital Signs Date Time Temp Pulse Resp B/P (MAP) Pulse Ox O2 Delivery O2 Flow Rate FiO2 10/22/17 12:00 98.2 65 18 156/89 (111) 95 98.2 10/22/17 10:03 168/80 10/22/17 09:00 Room Air 10/22/17 08:00 97.6 61 19 168/80 (109) 95 97.6 10/22/17 04:00 98.1 70 18 144/77 (99) 95 98.1 10/22/17 00:00 98.5 65 18 137/72 (93) 95 98.5 10/21/17 21:04 Room Air 10/21/17 20:00 99.5 63 18 139/71 (93) 95 99.5 10/21/17 18:05 139/61 10/21/17 16:00 98.1 56 18 139/61 (87) 97 98.1 Intake and Output 10/21/17 10/22/17 19:00 07:00 Intake Total 240 ml 1415 ml Output Total 400 ml Balance 240 ml 1015 ml Intake Oral 240 ml 360 ml IV Total 1055 ml Output Urine Total 400 ml # Voids 1 # Bowel Movements 3 1 Laboratory Tests 10/22/17 08:15: White Blood Count 7.2, Red Blood Count 3.44L, Hemoglobin 11.2L, Hematocrit 32.3L , Mean Corpuscular Volume 94, Mean Corpuscular Hemoglobin 32.6H, Mean Corpuscular Hemoglobin Concent 34.7, Red Cell Distribution Width 12.0, Platelet Count 218, Mean Platelet Volume 7.4, Neutrophils (%) (Auto) 65.4, Lymphocytes (% ) (Auto) 16.4L, Monocytes (%) (Auto) 10.5H, Eosinophils (%) (Auto) 6.9H, Basophils (%) (Auto) 0.8, Sodium Level 142, Potassium Level 3.4L, Chloride Level 111H, Carbon Dioxide Level 19L, Anion Gap 13, Blood Urea Nitrogen 29H, Creatinine 1.1, Estimat Glomerular Filtration Rate , Glucose Level 92, Calcium Level 8.7, Troponin I 0.073H Height (Feet): 5 Height (Inches): 6.00 Weight (Pounds): 180 General Appearance: no apparent distress, alert EENT: normal ENT inspection Neck: normal alignment Cardiovascular: normal peripheral pulses Respiratory/Chest: no respiratory distress Abdomen: soft Christiano Husain MD Oct 22, 2017 14:10
[2017-10-22 16:00] VITALS: BP 140/69
[2017-10-22 20:00] VITALS: BP 162/80
[2017-10-22] MEDS: Tamsulosin 0.4mg cap ORAL SCH (20:41)
[2017-10-22] MEDS ORDERED: Lisinopril 20mg tab ORAL SCH (21:00)
[2017-10-23] VITALS: BP 152/77
[2017-10-23 04:00] VITALS: BP 131/64
[2017-10-23] MEDS: NovoLOG Insulin Flexpen SUBQ SCH ×3 (06:00→16:30)
--- NOTE | 2017-10-23 06:30 | Progress Note ---
DATE: 10/22/2017 SUBJECTIVE: The patient is awake, alert, afebrile, hemodynamically stable. When asked whether he has any discomfort, he said that he has mild chest pain and he states that it is very mild, however, when asked how long he has the pain, he states he has the pain for many months and the pain is not different from the time that he had weeks prior to admission and during that admission. PHYSICAL EXAMINATION: VITAL SIGNS: Blood pressure is 162/80, his pulse is 63, respirations 17, and temperature 98.6 degrees. HEENT: Eyes were normal. ENT, mucous membranes were moist and intact. NECK: Supple with no JVD without lymph nodes. LUNGS: Clear. HEART: Normal sounds, but irregular heart beats. There is a high pitch aortic systolic murmur radiating to the neck and thoracic. There are no irregular beats. ABDOMEN: Soft and nontender with normal bowel sounds. EXTREMITIES: Warm without cyanosis, clubbing, or edema. LABORATORY AND DIAGNOSTIC DATA: Hemoglobin is 11.2, hematocrit 32.3 with MCV of 94, WBC of 7.2, and platelets of 218. His BUN and creatinine is 29 and 1.1 respectively. Sodium is 142, potassium 3.4, chloride 111, and CO2 is 19. His troponin, however, increased from 0.07 to . Chest x-ray revealed no active disease. The patient is able to ambulate without assistance without any increase in chest pain. IMPRESSION AND PLAN: The patient's infection has been resolved. The aortic stenosis is chronic and does not cause at the present time congestive heart failure. His blood pressure on lisinopril 10 mg b.i.d. was uncontrolled, therefore, this will be increased to b.i.d. and antibiotic will be discontinued. The patient will be in addition on Coreg 3.125 mg b.i.d. He is going to be discharged in the morning. He is planned to be discharged in the morning. The patient can be discharged safely back to the extended care facility. Hafsa Colon M.D. DR: CHANTAL JOB#: [id number] CC:
[2017-10-23 07:13] LABS: EOSINOPHILS % (AUTO) 8.7 % (0.0-3.0); HEMATOCRIT 33.3 % (42.0-52.0); HEMOGLOBIN 11.4 G/DL (14.2-18.0); LYMPHOCYTES % (AUTO) 18.4 % (20.0-45.0); MEAN CORPUSCULAR VOLUME 93 FL (80-99); MONOCYTES % (AUTO) 11.7 % (1.0-10.0); NEUTROPHILS % (AUTO) 60.2 % (45.0-75.0); PLATELET COUNT 238 K/UL (150-450); RED BLOOD COUNT 3.57 M/UL (4.70-6.10); RED CELL DISTRIBUTION WIDTH 11.8 % (11.6-14.8); WHITE BLOOD COUNT 7.1 K/UL (4.8-10.8)
[2017-10-23 07:31] LABS: ANION GAP 11 mmol/L (5-15); BLOOD UREA NITROGEN 26 mg/dL (7-18); CALCIUM 8.4 MG/DL (8.5-10.1); CARBON DIOXIDE 22 MMOL/L (21-32); CHLORIDE 107 MMOL/L (98-107); POTASSIUM 3.2 MMOL/L (3.5-5.1); SODIUM 140 MMOL/L (136-145)
[2017-10-23 08:00] VITALS: BP 164/60
[2017-10-23] MEDS: Lisinopril 20mg tab ORAL SCH ×2 (08:26→17:13)
[2017-10-23] MEDS: Heparin 5000 units/ml inj SUBQ SCH (08:28)
--- NOTE | 2017-10-23 09:59 | Nephrology Progress Note ---
Assessment/Plan Problem List: (1) Acute renal failure (ARF) (2) Urinary retention (3) UTI (lower urinary tract infection) (4) ACS (acute coronary syndrome) (5) Sepsis Assessment (1) Sepsis Hypotension (2) UTI (lower urinary tract infection) (3) Urinary retention and Acute renal failure Plan K supplement- Hydrate- Antibiotics Monitor renal parameters avoid Nephrotoxics adjust medications Subjective ROS Limited/Unobtainable: No Constitutional: Reports: malaise Objective Objective Last 24 Hour Vital Signs Date Time Temp Pulse Resp B/P (MAP) Pulse Ox O2 Delivery O2 Flow Rate FiO2 10/23/17 08:26 164/60 10/23/17 08:00 96.1 64 18 164/60 (94) 95 96.1 10/23/17 04:00 97.9 54 16 131/64 (86) 95 97.9 10/23/17 00:00 98.6 60 18 152/77 (102) 93 98.6 10/22/17 21:00 Room Air 10/22/17 20:42 162/80 10/22/17 20:00 98.6 63 17 162/80 (107) 92 98.6 10/22/17 17:12 140/69 10/22/17 16:00 98.7 65 19 140/69 (92) 98 98.7 10/22/17 12:00 98.2 65 18 156/89 (111) 95 98.2 10/22/17 10:03 168/80 Intake and Output 10/22/17 10/23/17 19:00 07:00 Intake Total 1030 ml 560 ml Balance 1030 ml 560 ml Intake Oral 480 ml 360 ml IV Total 550 ml 200 ml # Voids 4 5 # Bowel Movements 3 2 Laboratory Tests 10/23/17 06:50: White Blood Count 7.1, Red Blood Count 3.57L, Hemoglobin 11.4L, Hematocrit 33.3L , Mean Corpuscular Volume 93, Mean Corpuscular Hemoglobin 31.9H, Mean Corpuscular Hemoglobin Concent 34.1, Red Cell Distribution Width 11.8, Platelet Count 238, Mean Platelet Volume 6.6, Neutrophils (%) (Auto) 60.2, Lymphocytes (% ) (Auto) 18.4L, Monocytes (%) (Auto) 11.7H, Eosinophils (%) (Auto) 8.7H, Basophils (%) (Auto) 1.0, Sodium Level 140, Potassium Level 3.2L, Chloride Level 107, Carbon Dioxide Level 22, Anion Gap 11, Blood Urea Nitrogen 26H, Creatinine 1.0, Estimat Glomerular Filtration Rate , Glucose Level 88, Calcium Level 8.4L Height (Feet): 5 Height (Inches): 6.00 Weight (Pounds): 180 General Appearance: no apparent distress, lethargic Cardiovascular: normal rate Respiratory/Chest: decreased breath sounds Abdomen: soft Objective no change Hong Easton MD Oct 23, 2017 09:59
--- NOTE | 2017-10-23 10:17 | Infectious Diseases Prog Note ---
Assessment/Plan Assessment/Plan A: The patient is an 87-year-old male with Probable sepsis , Sp Leukocytosis, improving Complicated UTI UCx : P Mirabilis (in the setting of urinary obstruction) Rule out probable bacteremia Acute renal failure, improving Sp HypoTN US Abd : cholelithiasis Chest x-ray, NAPD BPH Hypertension Hyperlipidemia GERD Depression Peripheral vascular disease PLAN: cont Amoxicillin PO d# 2 / 10 , ok to DC w cont of oral AB Rx Sp IV cefepime d# 3 SP IV vancomycin and Levaquin d# 1 Monitor CBC Monitor BMP. Monitor cultures (blood) Subjective Constitutional: Denies: no symptoms, fever, chills, fatigue, anorexia, drenching sweats, other Allergies: Coded Allergies: No Known Allergies (Unverified , 07/01/13) Subjective no new complain Objective Vital Signs Last 24 Hour Vital Signs Date Time Temp Pulse Resp B/P (MAP) Pulse Ox O2 Delivery O2 Flow Rate FiO2 10/23/17 08:26 164/60 10/23/17 08:00 96.1 64 18 164/60 (94) 95 96.1 10/23/17 04:00 97.9 54 16 131/64 (86) 95 97.9 10/23/17 00:00 98.6 60 18 152/77 (102) 93 98.6 10/22/17 21:00 Room Air 10/22/17 20:42 162/80 10/22/17 20:00 98.6 63 17 162/80 (107) 92 98.6 10/22/17 17:12 140/69 10/22/17 16:00 98.7 65 19 140/69 (92) 98 98.7 10/22/17 12:00 98.2 65 18 156/89 (111) 95 98.2 Height (Feet): 5 Height (Inches): 6.00 Weight (Pounds): 180 HEENT: anicteric Respiratory/Chest: no respiratory distress Cardiovascular: no gallop/murmur Abdomen: non distended Microbiology Date/Time Source Procedure Growth Status 10/20/17 10:55 Urine,Clean Catch Urine Culture - Final Proteus Mirabilis Complete Laboratory Tests Test 10/23/17 06:50 White Blood Count 7.1 K/UL (4.8-10.8) Red Blood Count 3.57 M/UL (4.70-6.10) L Hemoglobin 11.4 G/DL (14.2-18.0) L Hematocrit 33.3 % (42.0-52.0) L Mean Corpuscular Volume 93 FL (80-99) Mean Corpuscular Hemoglobin 31.9 PG (27.0-31.0) H Mean Corpuscular Hemoglobin Concent 34.1 G/DL (32.0-36.0) Red Cell Distribution Width 11.8 % (11.6-14.8) Platelet Count 238 K/UL (150-450) Mean Platelet Volume 6.6 FL (6.5-10.1) Neutrophils (%) (Auto) 60.2 % (45.0-75.0) Lymphocytes (%) (Auto) 18.4 % (20.0-45.0) L Monocytes (%) (Auto) 11.7 % (1.0-10.0) H Eosinophils (%) (Auto) 8.7 % (0.0-3.0) H Basophils (%) (Auto) 1.0 % (0.0-2.0) Sodium Level 140 MMOL/L (136-145) Potassium Level 3.2 MMOL/L (3.5-5.1) L Chloride Level 107 MMOL/L (98-107) Carbon Dioxide Level 22 MMOL/L (21-32) Anion Gap 11 mmol/L (5-15) Blood Urea Nitrogen 26 mg/dL (7-18) H Creatinine 1.0 MG/DL (0.55-1.30) Estimat Glomerular Filtration Rate mL/min (>60) Glucose Level 88 MG/DL (74-106) Calcium Level 8.4 MG/DL (8.5-10.1) L Current Medications Medications (Trade) Dose Ordered Sig/Zurdo Route PRN Reason Start Time Stop Time Status Last Admin Dose Admin Acetaminophen (Tylenol) 650 mg Q6H PRN ORAL Mild Pain/Temp > 100.5 10/21/17 15:52 11/18/17 15:51 Amoxicillin (Amoxil) 500 mg EVERY 8 HOURS ORAL 10/22/17 14:00 10/29/17 13:59 10/23/17 05:43 Dextrose (Dextrose 50%) 25 ml STAT PRN IV Hypoglycemia 10/21/17 22:30 11/18/17 22:29 Dextrose (Dextrose 50%) 50 ml STAT PRN IV Hypoglycemia 10/21/17 22:30 11/18/17 22:29 Heparin Sodium (Porcine) (Heparin 5000 units/ml) 5,000 units EVERY 12 HOURS SUBQ 10/21/17 21:00 11/19/17 08:59 10/23/17 08:28 Insulin Aspart (NovoLOG) BEFORE MEALS AND HS SUBQ 10/21/17 16:30 11/19/17 06:29 10/21/17 21:29 Lisinopril (Prinivil) 20 mg BID ORAL 10/23/17 09:00 11/21/17 20:59 10/23/17 08:26 Mineral Oil (Fleet's Mineral Oil Enema) 133 ml EVERY OTHER DAY RECTAL 10/22/17 09:00 11/21/17 08:59 10/22/17 10:04 Potassium Chloride 100 ml @ 100 mls/hr Q1H IVPB 10/23/17 09:00 10/23/17 12:59 10/23/17 09:09 Tamsulosin HCl (Flomax) 0.4 mg BEDTIME ORAL 10/21/17 21:00 11/19/17 20:59 10/22/17 20:41 Devin Roth MD Oct 23, 2017 10:16
--- NOTE | 2017-10-23 11:44 | Pulmonology Progress Note ---
Assessment/Plan Problems: (1) Sepsis (2) UTI (lower urinary tract infection) (3) Urinary retention Assessment/Plan improving hemodynamically stable wbc decreasing iv abx f/u cultures, Urine has proteus , pansensitive stool softeners on Flomax check electrolytes Subjective ROS Limited/Unobtainable: No Constitutional: Reports: no symptoms HEENT: Repors: no symptoms Respiratory: Reports: no symptoms Allergies: Coded Allergies: No Known Allergies (Unverified , 07/01/13) Objective Last 24 Hour Vital Signs Date Time Temp Pulse Resp B/P (MAP) Pulse Ox O2 Delivery O2 Flow Rate FiO2 10/23/17 08:30 Room Air 10/23/17 08:26 164/60 10/23/17 08:00 96.1 64 18 164/60 (94) 95 96.1 10/23/17 04:00 97.9 54 16 131/64 (86) 95 97.9 10/23/17 00:00 98.6 60 18 152/77 (102) 93 98.6 10/22/17 21:00 Room Air 10/22/17 20:42 162/80 10/22/17 20:00 98.6 63 17 162/80 (107) 92 98.6 10/22/17 17:12 140/69 10/22/17 16:00 98.7 65 19 140/69 (92) 98 98.7 10/22/17 12:00 98.2 65 18 156/89 (111) 95 98.2 Intake and Output 10/22/17 10/23/17 19:00 07:00 Intake Total 1030 ml 560 ml Balance 1030 ml 560 ml Intake Oral 480 ml 360 ml IV Total 550 ml 200 ml # Voids 4 5 # Bowel Movements 3 2 General Appearance: WD/WN HEENT: atraumatic, anicteric Respiratory/Chest: chest wall non-tender, normal breath sounds Cardiovascular: normal peripheral pulses, regular rhythm Abdomen: normal bowel sounds, soft, non tender Extremities: no cyanosis Skin: no rash, no lesions Laboratory Tests 10/23/17 06:50: White Blood Count 7.1, Red Blood Count 3.57L, Hemoglobin 11.4L, Hematocrit 33.3L , Mean Corpuscular Volume 93, Mean Corpuscular Hemoglobin 31.9H, Mean Corpuscular Hemoglobin Concent 34.1, Red Cell Distribution Width 11.8, Platelet Count 238, Mean Platelet Volume 6.6, Neutrophils (%) (Auto) 60.2, Lymphocytes (% ) (Auto) 18.4L, Monocytes (%) (Auto) 11.7H, Eosinophils (%) (Auto) 8.7H, Basophils (%) (Auto) 1.0, Sodium Level 140, Potassium Level 3.2L, Chloride Level 107, Carbon Dioxide Level 22, Anion Gap 11, Blood Urea Nitrogen 26H, Creatinine 1.0, Estimat Glomerular Filtration Rate , Glucose Level 88, Calcium Level 8.4L Current Medications Medications (Trade) Dose Ordered Sig/Zurdo Route PRN Reason Start Time Stop Time Status Last Admin Dose Admin Acetaminophen (Tylenol) 650 mg Q6H PRN ORAL Mild Pain/Temp > 100.5 10/21/17 15:52 11/18/17 15:51 Amoxicillin (Amoxil) 500 mg EVERY 8 HOURS ORAL 10/22/17 14:00 10/29/17 13:59 10/23/17 05:43 Dextrose (Dextrose 50%) 25 ml STAT PRN IV Hypoglycemia 10/21/17 22:30 11/18/17 22:29 Dextrose (Dextrose 50%) 50 ml STAT PRN IV Hypoglycemia 10/21/17 22:30 11/18/17 22:29 Heparin Sodium (Porcine) (Heparin 5000 units/ml) 5,000 units EVERY 12 HOURS SUBQ 10/21/17 21:00 11/19/17 08:59 10/23/17 08:28 Insulin Aspart (NovoLOG) BEFORE MEALS AND HS SUBQ 10/21/17 16:30 11/19/17 06:29 10/21/17 21:29 Lisinopril (Prinivil) 20 mg BID ORAL 10/23/17 09:00 11/21/17 20:59 10/23/17 08:26 Mineral Oil (Fleet's Mineral Oil Enema) 133 ml EVERY OTHER DAY RECTAL 10/22/17 09:00 11/21/17 08:59 10/22/17 10:04 Potassium Chloride 100 ml @ 100 mls/hr Q1H IVPB 10/23/17 09:00 10/23/17 12:59 10/23/17 10:45 Tamsulosin HCl (Flomax) 0.4 mg BEDTIME ORAL 10/21/17 21:00 11/19/17 20:59 10/22/17 20:41 Griffin Patel MD Oct 23, 2017 11:43
[2017-10-23 12:00] VITALS: BP 163/87
[2017-10-23] MEDS ORDERED: AMOXICILLIN500 MG ORAL (13:13)
--- NOTE | 2017-10-23 13:40 | General Progress Note ---
Assessment/Plan Status: stable Assessment/Plan # Leukocytosis. Has improved since admission. Peripheral smear reviewed and no evidence of blasts/abnormalities --> Pt on IV abx. Continue prn --> Continue to monitor WBC for improvement. --> Currently afebrile. --> appreciate ID recs --> Current WBC of 7.1, wnl # Anemia of chronic disease. Currently stable with an Hgb above 11, no w/u required at this time. --> Will monitor for stability. --> Current hgb pg 11.4 # Sepsis. Pt on IV abx. --> ID consult. # Tachycardia. Controlled. # Hypotension. Improved. Subjective Date patient seen: Oct 23, 2017 ROS Limited/Unobtainable: Yes Hematologic/Lymphatic: Reports: anemia Allergies: Coded Allergies: No Known Allergies (Unverified , 07/01/13) All Systems: reviewed and negative except above Subjective No acute events. H/H stable. Afebrile. DC planning. Objective Last 24 Hour Vital Signs Date Time Temp Pulse Resp B/P (MAP) Pulse Ox O2 Delivery O2 Flow Rate FiO2 10/23/17 12:00 98.3 60 22 163/87 (112) 96 98.3 10/23/17 08:30 Room Air 10/23/17 08:26 164/60 10/23/17 08:00 96.1 64 18 164/60 (94) 95 96.1 10/23/17 04:00 97.9 54 16 131/64 (86) 95 97.9 10/23/17 00:00 98.6 60 18 152/77 (102) 93 98.6 10/22/17 21:00 Room Air 10/22/17 20:42 162/80 10/22/17 20:00 98.6 63 17 162/80 (107) 92 98.6 10/22/17 17:12 140/69 10/22/17 16:00 98.7 65 19 140/69 (92) 98 98.7 Intake and Output 10/22/17 10/23/17 19:00 07:00 Intake Total 1030 ml 560 ml Balance 1030 ml 560 ml Intake Oral 480 ml 360 ml IV Total 550 ml 200 ml # Voids 4 5 # Bowel Movements 3 2 Laboratory Tests 10/23/17 06:50: White Blood Count 7.1, Red Blood Count 3.57L, Hemoglobin 11.4L, Hematocrit 33.3L , Mean Corpuscular Volume 93, Mean Corpuscular Hemoglobin 31.9H, Mean Corpuscular Hemoglobin Concent 34.1, Red Cell Distribution Width 11.8, Platelet Count 238, Mean Platelet Volume 6.6, Neutrophils (%) (Auto) 60.2, Lymphocytes (% ) (Auto) 18.4L, Monocytes (%) (Auto) 11.7H, Eosinophils (%) (Auto) 8.7H, Basophils (%) (Auto) 1.0, Sodium Level 140, Potassium Level 3.2L, Chloride Level 107, Carbon Dioxide Level 22, Anion Gap 11, Blood Urea Nitrogen 26H, Creatinine 1.0, Estimat Glomerular Filtration Rate , Glucose Level 88, Calcium Level 8.4L Height (Feet): 5 Height (Inches): 6.00 Weight (Pounds): 180 General Appearance: no apparent distress EENT: PERRL/EOMI Neck: normal alignment Cardiovascular: bradycardia Respiratory/Chest: normal breath sounds, no respiratory distress Abdomen: soft Christiano Husain MD Oct 23, 2017 13:40
[2017-10-23 16:00] VITALS: BP 168/85
[2017-10-23] MEDS ORDERED: dilTIAZem HCl 90mg tab ORAL SCH (18:23)
[2017-10-23 20:00] VITALS: BP 143/72
--- NOTE | 2017-10-24 13:48 | Discharge Summary ---
Discharge Summary Discharge Summary _ DATE OF ADMISSION: 10/19/2017 DATE OF DISCHARGE: 10/23/2017 REASON FOR ADMISSION: 87 years old male with past medical history of hypertension, diabetes, hyperlipidemia, major depression , peripheral vascular disease, presented with altered mental status, hypotension and dysuria. Paramedics found him to be hypotensive. Patient received fluid bolus by paramedics, and blood pressure improved. Patient also had improvement in mentation at that time. No nausea, no vomiting, no diarrhea ,no constipation. No chest pain, no shortness of breath, no cough, no dizziness. Upon evaluation in emergency room vital signs revealed hypotension with blood pressure 91/52. Pulse oximetry was stable on room air. Laboratory workup revealed evidence of leukocytosis with WBC 33.6. Hemoglobin 13.5 hematocrit 38.9.. BUN 40 creatinine 2.3. Pro BNP 3038. Troponin negative. Urinalysis was grossly positive for UTI. Chest x-ray revealed no acute cardio pulmonary pathology. Patient admitted with diagnose of s sepsis, UTI. CONSULTANTS: pulmonary Dr. Patel ID specialist Dr. Roth printing gray cloth tender Dr. Easton report programmer/oncologist Dr. Husain [facility] COURSE: Patient admitted. Patient started on IV fluids and empiric antibiotics. Blood culture were negative. Urine culture revealed Proteus mirabilis. According to ID specialist, patient had complicated UTI in the setting of urinary obstruction. Antibiotic regimen was continued as per ID recommendations. Leukocytosis resolved. Tobacco Prevention Health Educator closely followed. Renal parameters and electrolytes were closely monitored. Nephrotoxins were avoided. Electrolytes were corrected as needed. Flomax was continued. Acute renal failure resolved. Prior to discharge BUN 26, creatinine 1.0. Blood pressure was closely monitored . With IV fluids hypotension resolved, likely was secondary to sepsis. Blood pressure was closely monitored and antihypertensive regimen was titrated to keep blood pressure under control. Echocardiogram revealed preserved ejection fraction of 65% , no wall motion abnormality. Right ventricular systolic pressure of 21. Evidence of aortic stenosis, apparently chronic. Last two troponin were minimally elevated. EKG showed no acute ischemic changes . Patient had no complain of chest pain , no shortness of breath ,no other cardiac symptoms. Minimally elevated troponin was possibly due to renal failure. Lipid panel was stable . DVT prophylaxis provided. Abdominal ultrasound revealed cholelithiasis without evidence of without inflammatory or obstructive changes. Blood sugar was managed with sliding scale of insulin. Bowel regimen instituted. Patient was noted to have anemia . Asp Net C Developer closely followed. Hemoglobin and hematocrit were closely monitored with goal to keep hemoglobin above 7. Hemoglobin remained at the baseline . No need for transfusion. Supportive care provided. Patient stabilized and was ready for discharge back to [facility] for continuation of care FINAL DIAGNOSES: Sepsis Proteus UTI, complicated Acute renal failure-resolved Anemia of chronic disease Urinary retention BPH Elevated troponin Hypotension -resolved Hypertension BPH Diabetes mellitus DISCHARGE MEDICATIONS: See Medication Reconciliation list. DISCHARGE INSTRUCTIONS: Patient was discharged to the [facility] facility. Follow up with medical doctor at the facility. I have been assigned to dictate discharge summary for this account. I was not involved in the patient's management. Neelam Quintanilla NP Oct 24, 2017 13:48
== END 2017-10-23 21:15 | DRG 720 ==
LOC: EDBD 17:20 → EMR 17:45 → 2E 17:49 → EDBEDREQ 18:31 → 4E 10-21 15:35
DX: A41.9 Sepsis, unspecified organism (principal); N17.9 Acute kidney failure, unspecified; D63.8 Anemia in other chronic diseases classified elsewhere; E11.9 Type 2 diabetes mellitus without complications; E78.5 Hyperlipidemia, unspecified; F32.9 Major depressive disorder, single episode, unspecified; I10 Essential (primary) hypertension; K21.9 Gastro-esophageal reflux disease without esophagitis; N39.0 Urinary tract infection, site not specified; B96.4 Proteus (mirabilis) (morganii) as the cause of diseases classified elsewhere; N40.1 Benign prostatic hyperplasia with lower urinary tract symptoms; R33.8 Other retention of urine; R74.8 Abnormal levels of other serum enzymes; I73.9 Peripheral vascular disease, unspecified; I35.0 Nonrheumatic aortic (valve) stenosis; K80.20 Calculus of gallbladder without cholecystitis without obstruction
CPT/HCPCS: 36415; 71045; 76700; 80048; 80053; 80061; 80076; 81001; 81003; 82550; 82962; 83036; 83605; 83735; 83880; 84100; 84132; 84133; 84300; 84484; 84550; 85007; 85025; 85610; 85651; 85730; 86140; 87040; 87081; 87086; 87181; 89050; 93005; 93306; 99285; J1815